=== PATIENT | female | born 1945 | race Caucasian/White ===

== ENCOUNTER → 2024-08-07 | Outpatient (CLI) | payer OTHER, MEDICAID, SELFPAY ==
[2024-08-07 15:36] LABS: COVID-19 Antigen (In-House) Negative (Negative)
[2024-08-07 15:40] LABS: Basophils # (Auto) 0.1 Thou/mm3 (0.0-0.2); Basophils % (Auto) 1 % (0-2.5); Eosinophils # (Auto) 0.3 Thou/mm3 (0.0-0.5); Eosinophils % (Auto) 4 % (0-10); Hematocrit 28.2 % (36.0-46.0); Hemoglobin 9.1 g/dL (12.0-16.0); Immature Granulocytes % (Auto) 0 % (0-0); Immature Granulocytes Auto 0.03 Thou/mm3 (0.00-0.00); Lymphocytes # (Auto) 1.4 Thou/mm3 (1.0-4.8); Lymphocytes % (Auto) 18 % (10-50); Mean Corpuscular HGB Conc 32.3 g/dl (31.0-37.0); Mean Corpuscular Hemoglobin 33.6 pg (25.0-35.0); Mean Corpuscular Volume 104 fL (80-100); Monocytes # (Auto) 0.7 Thou/mm3 (0.0-0.8); Monocytes % (Auto) 9 % (0-12); Neutrophils # (Auto) 5.1 Thou/mm3 (1.8-7.7); Neutrophils % (Auto) 67 % (37-80); Nucleated Red Blood Cell % 0 /100 WBC (0); Platelet Count 299 Thou/mm3 (140-440); RDW Standard Deviation 53.2 fL (36.4-46.3); Red Blood Count 2.71 Miln/mm3 (4.00-5.20); White Blood Count 7.6 Thou/mm3 (3.6-11.0)
[2024-08-07 15:54] LABS: Influenza A Ag Negative; Influenza B Ag Negative; Respiratory Syncytial Virus Ag Negative (Negative)
[2024-08-07 15:56] LABS: Alanine Aminotransferase 15 U/L (10-49); Albumin, Serum 4.4 gm/dL (3.4-4.8); Albumin/Globulin Ratio 2.3 (1.2-2.2); Alkaline Phosphatase 83 U/L (46-116); Anion Gap 11 (7-16); Aspartate Amino Transferase 18 U/L (0-34); BUN/Creatinine Ratio 34 Ratio (12-20); Bilirubin,Total 0.4 mg/dL (0.3-1.2); Blood Urea Nitrogen 27 mg/dL (9-23); Calcium 8.9 mg/dL (8.3-10.6); Calcium (Corrected) 8.9 mg/dL (8.5-10.1); Carbon Dioxide 23.3 mMol/L (20.0-31.0); Chloride 108 mMol/L (98-107); Creatinine (Component) 0.8 mg/dL (0.6-1.3); Globulin 1.9 gm/dL (2.3-3.5); Glucose 86 mg/dL (74-106); Osmolality,Calculated 287 (275-295); Potassium 4.2 mMol/L (3.4-5.1); Sodium 142 mMol/L (136-145); Total Protein 6.3 gm/dL (5.7-8.2); eGFR > 60 See Note
[2024-08-08 14:25] LABS: Cocci Serology, IgM Negative (Negative)
[2024-08-09 12:57] LABS: Cocci Serology, IgG Negative (Negative)
== END | disposition home or self-care (01) ==
PROVIDERS: PCP Internal Medicine; Referring Provider Internal Medicine; Visit Provider Internal Medicine
DX: I20.9 Angina pectoris, unspecified (principal); J11.89 Influenza due to unidentified influenza virus with other manifestations; Z11.52 Encounter for screening for COVID-19
CPT/HCPCS: 36415; 80053; 85025; 86331; 86635; 87040; 87502; 87634; 87811

== ENCOUNTER → 2024-09-29 | Outpatient (CLI) | payer OTHER, MEDICAID, SELFPAY ==
[2024-09-29 08:10] LABS: Collection Type, Urine Clean Catch
[2024-09-29 08:45] LABS: Basophils # (Auto) 0.1 Thou/mm3 (0.0-0.2); Basophils % (Auto) 2 % (0-2.5); Eosinophils # (Auto) 0.3 Thou/mm3 (0.0-0.5); Eosinophils % (Auto) 5 % (0-10); Hematocrit 33.7 % (36.0-46.0); Hemoglobin 10.8 g/dL (12.0-16.0); Immature Granulocytes % (Auto) 0 % (0-0); Immature Granulocytes Auto 0.01 Thou/mm3 (0.00-0.00); Lymphocytes # (Auto) 1.4 Thou/mm3 (1.0-4.8); Lymphocytes % (Auto) 23 % (10-50); Mean Corpuscular Hemoglobin 32.6 pg (25.0-35.0); Mean Corpuscular Volume 102 fL (80-100); Monocytes # (Auto) 0.5 Thou/mm3 (0.0-0.8); Monocytes % (Auto) 9 % (0-12); Neutrophils # (Auto) 3.8 Thou/mm3 (1.8-7.7); Neutrophils % (Auto) 62 % (37-80); Nucleated Red Blood Cell % 0 /100 WBC (0); Platelet Count 263 Thou/mm3 (140-440); RDW Standard Deviation 51.1 fL (36.4-46.3); Red Blood Count 3.31 Miln/mm3 (4.00-5.20); White Blood Count 6.1 Thou/mm3 (3.6-11.0)
[2024-09-29 08:53] LABS: Glucose Estimated Average 97 mg/dL (80-131)
[2024-09-29 09:04] LABS: Alanine Aminotransferase 17 U/L (10-49); Albumin, Serum 5.1 gm/dL (3.4-4.8); Albumin/Globulin Ratio 2.3 (1.2-2.2); Alkaline Phosphatase 74 U/L (46-116); Anion Gap 11 (7-16); Aspartate Amino Transferase 24 U/L (0-34); BUN/Creatinine Ratio 30 Ratio (12-20); Bilirubin,Total 0.6 mg/dL (0.3-1.2); Blood Urea Nitrogen 30 mg/dL (9-23); Calcium 9.5 mg/dL (8.3-10.6); Calcium (Corrected) 9.5 mg/dL (8.5-10.1); Carbon Dioxide 24.9 mMol/L (20.0-31.0); Cardiac Risk Estimate 2.2 RATIO (3.7-5.6); Chloride 106 mMol/L (98-107); Cholesterol 148 mg/dL (132-200); Globulin 2.2 gm/dL (2.3-3.5); Glucose 90 mg/dL (74-106); HDL Cholesterol 67 mg/dL (40-60); LDL Cholesterol,Calculated 60 mg/dL (0-130); Osmolality,Calculated 289 (275-295); Potassium 3.8 mMol/L (3.4-5.1); Sodium 142 mMol/L (136-145); Thyroid Stimulating Hormone 1.61 uIU/mL (0.55-4.78); Total Protein 7.3 gm/dL (5.7-8.2); Triglycerides 107 mg/dL (30-150); eGFR 57 See Note
[2024-09-29 09:05] LABS: Vitamin B12 509 pg/mL (211-911); Vitamin D 25 Hydroxy Total 17.5 ng/mL (7.3-40.2)
[2024-09-29 09:19] LABS: Bilirubin,Urine Negative (Negative); Blood,Urine Negative (Negative); Clarity,Urine Clear (Clear/Hazy); Color,Urine Lt-Yellow (Lt Yel-Yel); Glucose, Urine Negative (Negative); Ketones,Urine Negative (Negative); Leukocyte Esterase,Urine Negative (Negative); Nitrite,Urine Negative (Negative); PH,Urine 6.5 (5.0-7.0); Protein,Urine Negative (Neg - Trace); RBC,Urine 3 /hpf (0-3); Specific Gravity,Urine 1.016 (1.001-1.035); Squamous Epithelial Cell,Urine 1 /hpf (0-5); Urobilinogen,Urine Negative mg/dL (0.0-1.0); WBC,Urine 1 /hpf (0-5)
== END | disposition home or self-care (01) ==
PROVIDERS: PCP Internal Medicine; Referring Provider Internal Medicine; Visit Provider Internal Medicine
DX: Z00.00 Encounter for general adult medical examination without abnormal findings (principal); I10 Essential (primary) hypertension; E78.5 Hyperlipidemia, unspecified
CPT/HCPCS: 36415; 80053; 80061; 81001; 82306; 82607; 83036; 84443; 84550; 85025

== ENCOUNTER → 2024-12-12 | Outpatient (CLI) | payer OTHER, MEDICAID, SELFPAY ==
[2024-12-12 09:49] LABS: Misc Send Out* See Sep Rpt
[2024-12-12 11:14] LABS: Albumin, Serum 4.3 gm/dL (3.4-4.8); Anion Gap 8 (7-16); BUN/Creatinine Ratio 52 Ratio (12-20); Blood Urea Nitrogen 52 mg/dL (9-23); Calcium 9.3 mg/dL (8.3-10.6); Calcium (Corrected) 9.3 mg/dL (8.5-10.1); Carbon Dioxide 26.7 mMol/L (20.0-31.0); Chloride 106 mMol/L (98-107); Glucose 91 mg/dL (74-106); Osmolality,Calculated 295 (275-295); Phosphorous 3.9 mg/dL (2.4-5.1); Potassium 4.6 mMol/L (3.4-5.1); Sodium 141 mMol/L (136-145); eGFR 57 See Note
[2024-12-18 06:40] LABS: Renin Activity, Plasma* 1.73 ng/mL/h (0.25-5.82)
[2024-12-18 06:43] LABS: Aldosterone* 2 ng/dL
== END | disposition home or self-care (01) ==
LOC: COPL 09:18
PROVIDERS: PCP Internal Medicine; Referring Provider Internal Medicine; Visit Provider Internal Medicine
DX: I10 Essential (primary) hypertension (principal); E78.5 Hyperlipidemia, unspecified
CPT/HCPCS: 36415; 80069; 82088; 84244

== ENCOUNTER → 2024-12-22 | Outpatient (CLI) | payer OTHER, SELFPAY ==
--- NOTE | 2024-12-22 | XR_ITS ---
Examination: Renal sonogram Renal Doppler sonographic analysis renal arteries Exam date and time: December 22, 2024 1121 hours INDICATIONS: Diagnosis hypertension several years TECHNIQUE AND FINDINGS: Grayscale sonographic images kidneys with assessment peak arterial systolic velocities resistive indices and renal aortic ratios Right kidney 8.2 cm mild elevation mid right renal artery peak systolic velocity mid right renal artery Mildly elevated resistive indices Normal renal aortic ratio Left kidney 7.6 cm no elevation of systolic velocities Mildly elevated resistive indices, unable to obtain to been prior ratio IMPRESSION: No findings diagnostic for renal artery stenosis
--- NOTE | 2024-12-22 11:00 | XR_ITS ---
Examination: Retroperitoneal ultrasound, complete Technique: Multiple high resolution grayscale images of the retroperitoneum obtained, including kidneys and bladder. Exam date and time:December 22, 2024 1107 hours INDICATIONS: Flank pain months FINDINGS: Right kidney 7.3 cm cortex 1.3 cm Left kidney 7.0 cm renal cortex 1.4 cm Moderate bilateral renal parenchymal scar formation No hydronephrosis No bladder mass or bladder calculi Bladder prevoid volume 134 cc IMPRESSION: Small kidneys with renal cortical thinning Moderate bilateral renal parenchyma scar formation
== END | disposition home or self-care (01) ==
LOC: CDIM 10:21
PROVIDERS: PCP Internal Medicine; Referring Provider Internal Medicine; Visit Provider Internal Medicine
DX: N28.89 Other specified disorders of kidney and ureter (principal); I10 Essential (primary) hypertension
CPT/HCPCS: 76770; 93975

== ENCOUNTER → 2025-03-30 | Outpatient (CLI) | payer OTHER, SELFPAY ==
[2025-03-30 10:23] LABS: Anion Gap 13 (7-16); BUN/Creatinine Ratio 36 Ratio (12-20); Blood Urea Nitrogen 68 mg/dL (9-23); Calcium 9.2 mg/dL (8.3-10.6); Carbon Dioxide 23.7 mMol/L (20.0-31.0); Chloride 105 mMol/L (98-107); Creatinine (Component) 1.9 mg/dL (0.6-1.3); Glucose 98 mg/dL (74-106); Magnesium 2.6 mg/dL (1.6-2.6); Osmolality,Calculated 302 (275-295); Potassium 4.3 mMol/L (3.4-5.1); Sodium 142 mMol/L (136-145); eGFR 26 See Note
== END | disposition home or self-care (01) ==
LOC: COPL 09:13
PROVIDERS: PCP Internal Medicine; Referring Provider Internal Medicine Cardiovascular Disease; Visit Provider Internal Medicine Cardiovascular Disease
DX: I25.118 Atherosclerotic heart disease of native coronary artery with other forms of angina pectoris (principal); I35.1 Nonrheumatic aortic (valve) insufficiency
CPT/HCPCS: 36415; 80048; 83735

== ENCOUNTER 2025-04-12 15:26 | Inpatient (IN) | payer OTHER, MEDICAID, MEDICARE, SELFPAY ==
[2025-04-12 15:28] VITALS: BMI 30.2
--- NOTE | 2025-04-12 15:34 | EKG_ITS ---
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
[2025-04-12 15:37] VITALS: BP 147/76; PULSE 82; RESP 18; TEMP 36.9; O2SAT 97
--- NOTE | 2025-04-12 15:43 | EDRME_ITS ---
Rapid Medical Screening Exam [facility] Arrival date/time: 04/12/25 15:26 CC: Epigastric pain which radiates up into the chest and straight to the back. Onset 2 weeks ago. Also includes nausea vomiting and intermittent diarrhea. Chief Complaint: Abdominal Pain Time Seen by Provider: 04/12/25 15:40 Vital signs: Vital Signs Temperature 98.4 F 04/12/25 15:37 Pulse Rate 82 04/12/25 15:37 Respiratory Rate 18 04/12/25 15:37 Blood Pressure 147/76 H 04/12/25 15:37 Pulse Oximetry (%) 97 04/12/25 15:37 Oxygen Delivery Method Room Air 04/12/25 15:37
[2025-04-12] MEDS: MG HYD/AL HYD/SIME (Maalox Reg) SUSP 30 ML UDC PO (15:59)
[2025-04-12 16:21] LABS: Basophils # (Auto) 0.1 Thou/mm3 (0.0-0.2); Basophils % (Auto) 1 % (0-2.5); Eosinophils # (Auto) 0.5 Thou/mm3 (0.0-0.5); Eosinophils % (Auto) 7 % (0-10); Hematocrit 27.2 % (36.0-46.0); Immature Granulocytes Auto 0.02 Thou/mm3 (0.00-0.00); Lymphocytes # (Auto) 1.2 Thou/mm3 (1.0-4.8); Lymphocytes % (Auto) 17 % (10-50); Mean Corpuscular HGB Conc 32.4 g/dl (31.0-37.0); Mean Corpuscular Hemoglobin 31.4 pg (25.0-35.0); Mean Corpuscular Volume 97 fL (80-100); Monocytes # (Auto) 1.1 Thou/mm3 (0.0-0.8); Monocytes % (Auto) 16 % (0-12); Neutrophils # (Auto) 3.9 Thou/mm3 (1.8-7.7); Neutrophils % (Auto) 58 % (37-80); Nucleated Red Blood Cell # 0.00 Thou/mm3 (0.00-0.00); Nucleated Red Blood Cell % 0 /100 WBC (0); Platelet Count 260 Thou/mm3 (140-440); RDW Standard Deviation 49.0 fL (36.4-46.3); Red Blood Count 2.80 Miln/mm3 (4.00-5.20); White Blood Count 6.8 Thou/mm3 (3.6-11.0)
[2025-04-12 16:27] LABS: Hemoglobin 8.8 g/dL (12.0-16.0)
[2025-04-12 16:35] LABS: INR 1.0 (0.9-1.3); Partial Thromboplastin Time 23.0 Seconds (22.0-36.0); Prothrombin Time 11.0 Seconds (9.0-12.2)
[2025-04-12 16:43] LABS: B-Type Natriuretic Peptide 125 pg/mL (0-100)
[2025-04-12 16:46] LABS: Alanine Aminotransferase 11 U/L (10-49); Albumin, Serum 4.8 gm/dL (3.4-4.8); Albumin/Globulin Ratio 1.8 (1.2-2.2); Alkaline Phosphatase 76 U/L (46-116); Anion Gap 13 (7-16); Aspartate Amino Transferase 27 U/L (0-34); BUN/Creatinine Ratio 28 Ratio (12-20); Bilirubin,Total 0.3 mg/dL (0.3-1.2); Blood Urea Nitrogen 71 mg/dL (9-23); Calcium 8.8 mg/dL (8.3-10.6); Calcium (Corrected) 8.8 mg/dL (8.5-10.1); Carbon Dioxide 19.9 mMol/L (20.0-31.0); Chloride 102 mMol/L (98-107); Creatinine (Component) 2.5 mg/dL (0.6-1.3); Estimated Creatinine Clearance 16.4 mL/min (>60); Globulin 2.6 gm/dL (2.3-3.5); Glucose 107 mg/dL (74-106); Lipase 56 U/L (12-53); Magnesium 2.5 mg/dL (1.6-2.6); Osmolality,Calculated 290 (275-295); Potassium 4.3 mMol/L (3.4-5.1); Sodium 135 mMol/L (136-145); Total Protein 7.4 gm/dL (5.7-8.2); Troponin I < 0.020 ng/mL (0.0-0.045); eGFR 19 See Note
--- NOTE | 2025-04-12 16:55 | EDNOTE_ITS ---
ED Abdominal Pain RME/HPI General Chief Complaint: Abdominal Pain Stated complaint: ABD/BACK PAIN X2WK Time seen by provider: 04/12/25 15:40 Arrival date/time: 04/12/25 15:26 RME / HPI RME / HPI narrative: 80-year-old female patient with significant history of hypertension came in for evaluation regarding epigastric pain which radiates up into the chest and straight to the back. Onset 2 weeks ago. Also includes nausea vomiting and i ntermittent diarrhea. For the last 2 days patient told me that her stool looks green. Patient denies any vomiting blood. Denies any other complaints. Patient is taking Plavix. Related Data Home Medications ?Medication ?Instructions ?Recorded ?Confirmed hydralazine 10 mg tablet 50 mg PO BID 06/15/22 amlodipine 5 mg tablet 5 mg PO QDAY 07/21/24 atorvastatin 20 mg tablet 20 mg PO HS 07/21/24 4 clopidogrel 75 mg tablet (Plavix) 75 mg PO QDAY 07/21/24 furosemide 20 mg tablet 20 mg PO QDAY 07/21/2407/21 metoprolol succinate 50 mg 50 mg PO QDAY 07/21/2407/07 tablet,extended release 24 hr Previous Rx's ?Medication ?Instructions ?Recorded losartan 100 mg tablet 100 mg PO QDAY #30 tabs 10/08 03/29 Allergies Allergy/AdvReac Type Severity Reaction Status Date / Time No Known Allergies Allergy Verified 04/12/25 15:33 Review of Systems Review of Systems Narrative Review of Systems: Review of system reviewed and within normal limits except mentioned in HPI ED Exam Narrative Physical exam: VITAL SIGNS: Reviewed. GENERAL APPEARANCE: Alert and interactive, follows commands, no acute distress, HEAD AND FACE: Non-traumatic. ENT: PERRL, pink conjunctivitis, eyelid no trauma, Mucous membrane moist. NECK: Supple, nontender, no nuchal rigidity. CHEST: No tenderness, no crepitus, no paradoxical movement, no retractions. LUNGS: Clear, well ventilated, symmetric, no rales, no wheezing, no ronchi, no stridor, good breath sounds bilaterally. HEART: Regular rate, regular rhythm, no murmur, no gallops. ABDOMEN: Soft, positive bowel sounds, nondistended, no guarding, nontender, no rebound, no masses, RECTAL: Rectal exam was done by me, and green-colored stool noted, strong positive for occult blood. GENITAL: Deferred. NEUROLOGICAL: Gross motor function intact sensory function intact, Appropriate for age. MUSCULOSKELETAL: low back nontender, full range of motion. EXTREMITIES: Nontender, full range of motion. SKIN: Color pink, dry, no rash, no lacerations, no abrasions, no contusions. LYMPHATICS: Deferred. Course Quality Measures none Orders Category Date Time Status COVID-19 Screening Questionnaire NOW Care 04/12/25 18:44 Active Decision to Admit X1 Care 04/12/25 18:44 Active EKG (ED ONLY) *Do not use* NOW Care 04/12/25 15:34 Completed Consult to Gastroenterology Stat Cons 04/12/25 18:[address] abdomen pelvis wo con Stat Exams 04/12/25 17:06 Completed EKG (ED Only) Stat Exams 04/12/25 15:34 Draft B-Type Natriuretic Peptide Stat Lab 04/12/25 15:09 Completed CBC Stat Lab 04/12/25 15:09 Completed Comprehensive Metabolic Panel Stat Lab 04/12/25 15:09 Completed Drug Screen,Urine Stat Lab 04/12/25 16:46 Completed Lipase Stat Lab 04/12/25 15:09 Completed Magnesium Stat Lab 04/12/25 15:09 Completed Partial Thromboplastin Time Stat Lab 04/12/25 15:09 Completed Prothrombin Time with INR Stat Lab 04/12/25 15:09 Completed Troponin I Stat Lab 04/12/25 15:09 Completed Urinalysis Stat Lab 04/12/25 16:46 Completed Pantoprazole Inj [Protonix Inj] Med 04/12/25 17:06 Discontinued 80 mg IVP X1 ONE Ringers Lactated 1000 ml [Lactated Ringers] 1,000 ml Med 04/12/25 17:06 Discontinued IV 999 mls/hr mg Hyd/Al Hyd/Kathryn Susp [Maalox Susp] Med 04/12/25 15:43 Discontinued 30 ml PO X1 ONE Vital Signs Vital signs: Vital Signs Temperature 98.4 F 04/12/25 15:37 Pulse Rate 82 04/12/25 15:37 Respiratory Rate 18 04/12/25 15:37 Blood Pressure 147/76 H 04/12/25 15:37 Pulse Oximetry (%) 97 08/07/25 15:37 Oxygen Delivery Method Room Air 04/12/25 15:37 Abdominal Pain MDM [facility] Narrative [facility] Narrative:: 80-year-old 80 yo female pt with significant history of hypertension came in for evaluation regarding epigastric pain which radiates up into the chest and straight to the back. Onset 2 weeks ago. Also includes nausea vomiting and intermittent diarrhea. For the last 2 days patient told me that her stool looks green. Patient denies any vomiting blood. Denies any other complaints. Patient is taking Plavix. EKG shows sinus rhythm, ventricular rate of 80 bpm, no ST segment elevation or depression noted. Patient's hemoglobin today was noted to be 8.8, hematocrit of 27.2, platelets is normal. Last September patient's hemoglobin was noted to be 10.8. Patient also was noted to have a creatinine of 2.[address] scan of the abdomen and pelvis came back with no acute pathology Case discussed with patient's PCP Dr. Nugent, who admitted the patient, negative Dr. Nugent I consulted Dr. Blum also GI specialist on-call, discussed the case and will see the patient. Thank you Dr. Blum Patient data External records reviewed:: None Clinical information provided by:: patient Social determinants that could affect healthcare access:: none Patient has the following chronic illnesses:: Hypertension How is presenting disease/condition affected by chronic disease/condition?: exacerbated by Evaluation data The following diagnostics were reviewed and interpreted by me:: lab results, radiology exam(s) and EKG tracing(s) Lab and/or radiology exams considered but not ordered:: None Interpretation Summary: See results [facility] Medications / Prescriptions Medications or Prescriptions considered but not ordered:: None Medication administrations:: Medication Administration History Discontinued Medications Al Hydrox/Mg Hydrox/Simethicone (Mg Hyd/Al Hyd/Kathryn (Maalox Reg) Susp 30 Ml Udc) 30 ml PO X1 ONE Stop: 04/12/25 15:44 Last Admin: 04/12/25 15:59 Dose: 30 ml Documented By: CELSA Lactated Ringer's (Lactated Ringers) 1,000 mls @ 999 mls/hr IV .Q1H1M ONE Stop: 04/12/25 18:06 Last Admin: 04/12/25 18:10 Dose: 999 mls/hr Documented By: RAKEL Pantoprazole Sodium (Pantoprazole Inj 40 Mg Vial) 80 mg IVP X1 ONE Stop: 04/12/25 17:07 Last Admin: 04/12/25 18:09 Dose: 80 mg Documented By: TM Maalox, IV fluids, Protonix IV Consultations Consultation(s) initiated? (list below): Yes Consultation #1 (Physician, Specialty, Details): Dr. Blum, GI specialist on-call Diagnosis Differential diagnosis abdominal pain: abdominal pain, constipation and diverticulitis Most likely diagnosis given after review of the tests above:: Upper GI bleed, abdominal pain, ENRIKE Admission Indicated Admission indicated?: indicated Admission Request Was there a request for admission?: Yes Admission Attestation Admission request attestation: Dr Nugent agrees to accept the patient for admission. Disposition Plan Disposition Plan: Admit Discharge Plan Plan Patient Disposition: Admit Acute Care w/in Hospital Discharge Disposition comment: stable Prescriptions/Referrals Prescriptions/Med Rec: No Action metoprolol succinate 50 mg Tablet Extended Release 24 Hr 50 mg PO QDAY clopidogrel [Plavix] 75 mg Tablet 75 mg PO QDAY amlodipine 5 mg Tablet 5 mg PO QDAY furosemide 20 mg Tablet 20 mg PO QDAY atorvastatin 20 mg tablet 20 mg PO HS hydralazine 10 mg Tablet 50 mg PO BID losartan 100 mg Tablet 100 mg PO QDAY Qty: 30 0RF Referrals: Berenice Nugent MD [Primary Care Provider] - In 1 week Problem List Clinical Impression: UGIB (upper gastrointestinal bleed), ENRIKE (acute kidney injury) Patient/Caregiver Discharge Instructions Print Language: Kiswahili Stand Alone Forms: Kim Award Info., Patient Portal Info Letter
[2025-04-12 17:06] VITALS: BP 178/73; PULSE 87; RESP 14; TEMP 36.6; O2SAT 99
--- NOTE | 2025-04-12 17:06 | XR_ITS ---
Examination: CT abdomen and pelvis without contrast. Coronal 3-D reconstructions. Sagittal 2-D reconstructions. Date and time of exam:April 12, 2025 1731 hours Comparison 05/19/2024 INDICATIONS: Lower abdominal pain beginning 2 weeks ago CTDI: vol (mGy): 9.53 DLP: (mGycm): 472 Technique: Axial images of the abdomen have been obtained, 3 mm slice thickness Intravenous contrast material has not been administered. Low dose protocols were performed. One or more of the following dose reduction techniques were used; automated exposure control, adjustment of the mA and/or KV according to patient size, use of iterative reconstruction technique. Findings: Large retrocardiac gastric hernia No focal liver or splenic lesions No gallstones No pancreatic or adrenal mass Moderate renal parenchymal scar formation, no hydronephrosis or ureteral calculi Aortic calcification no aneurysmal dilatation No bowel obstruction Normal appendix No diverticulitis Atrophic anteverted uterus No adnexal mass Urinary bladder is intact mild wall thickening Grade 1 anterolisthesis L4 on L5 Moderate degenerative disc disease L5-S1 and involving the lower dorsal interspaces Moderate narrowing hip joints Severe osteopenia. IMPRESSION: Moderate renal parenchymal scar formation, no hydronephrosis or ureteral calculi Normal appendix No bowel obstruction or diverticulitis Cystitis pattern
[2025-04-12 17:08] LABS: Collection Type, Urine Clean Catch
[2025-04-12 17:11] LABS: Bilirubin,Urine Negative (Negative); Blood,Urine Negative (Negative); Clarity,Urine Clear (Clear/Hazy); Color,Urine Lt-Yellow (Lt Yel-Yel); Glucose, Urine Negative (Negative); Hyaline Casts,Urine 1 /hpf (0-1); Ketones,Urine Negative (Negative); Leukocyte Esterase,Urine Negative (Negative); Nitrite,Urine Negative (Negative); PH,Urine 5.5 (5.0-7.0); Protein,Urine Negative (Neg - Trace); RBC,Urine 1 /hpf (0-3); Specific Gravity,Urine 1.014 (1.001-1.035); Squamous Epithelial Cell,Urine 1 /hpf (0-5); Urobilinogen,Urine Negative mg/dL (0.0-1.0); WBC,Urine < 1 /hpf (0-5)
[2025-04-12 17:19] LABS: Amphetamine/Methamp Scrn,U Negative (Negative); Barbiturate Screen,Urine Negative (Negative); Benzodiazepines Screen,Urine Negative (Negative); Benzoylecgonine Screen, Ur Negative (Negative); Fentanyl Screen,Urine Positive (Negative); Opiate Screen,Urine Negative (Negative); THC Screen,Urine Negative (Negative)
--- NOTE | 2025-04-12 18:00 | PC.NURSE ---
PT GCS 15, DENIES ANY CURRENT PAIN OR DISCOMFORT STATES THAT THE MEDICATION HELPED HER A LOT. VSS ON TELE, WILL CONT W/POC
[2025-04-12] MEDS: RINGERS LACTATED 1000 ML 1,000 ML 999 ML IV (18:10)
[2025-04-12 20:30] VITALS: BP 143/56; PULSE 86; RESP 16; TEMP 36.8; O2SAT 99
--- NOTE | 2025-04-12 21:07 | PD.RESHP ---
Documentation for date of: 04/13/25 [facility] History of Present Illness History of present illness: Erna Hernandez is an 80-year-old F with a PMH of peptic ulcers, HTN, HLD, and CAD s/p stenting who presented to the ED on 04/12/25 with epigastric pain radiating up the chest and straight to the back. At that time she also endorsed associated nausea, vomiting, and intermittent diarrhea (productive of green stool in the last 2 days). During this assembly instructions writer's interview occurring on 04/13/25, facilitated by computer engineering technologist, patient's chief complaint was stomach ache, and pain in the back, shoulders, and arms . She states that the pain started 2 weeks ago and that she had received medicine from a doctor around that time which did not help. However, today, she denies any of the pain that she had initially presented with in the ED. In the ED, vitals showed: BP 147/76 HR 82 RR 18 Temp 98.4 SpO2 97% on room air ED Course: CBC showed low hemoglobin 8.8 (MCV 97, high RDW 49.0) but was otherwise within normal limits. Coagulation panel was within normal limits. CMP showed slightly low sodium 135, high BUN 71, high creatinine 2.5, low EGFR 19, and very slightly elevated BNP 125 and lipase 56. UA was unremarkable. UDS was positive for fentanyl but negative otherwise. Imaging: EKG showed normal sinus rhythm with normal QTc 445. CTAP showed moderate renal parenchymal scar formation without hydronephrosis or ureteral calculi, cystitis pattern, normal appendix, and no bowel obstruction or diverticulitis. Other notable findings include a large retrocardiac gastric hernia, aortic calcification without aneurysmal dilatation, grade 1 anterolisthesis L4 on L5, moderate degenerative disc disease L5-S1 and involving the lower third dorsal interspaces, and severe osteopenia. In the ED, patient was given Maalox, IV Protonix, and 1 L lactated Ringer's bolus. Patient was admitted for the work-up and management of GI bleed and ENRIKE. Gastroenterology (Dr. Blum) was consulted and is closely following the case. Review of Systems Review of Systems Narrative Review of Systems: General: Denies fevers or chills HEENT: Denies congestion or sore throat Heart: Endorses chest pain. Endorses fatigue with exertion. Denies palpitations Lungs: Denies shortness of breath or cough Abdomen: Endorses nausea. Endorses suprapubic abdominal pain. Denies vomiting, constipation, diarrhea, or blood in stool Genitourinary: Denies frequency, urgency, dysuria, or hematuria Neurology: Denies any changes in vision, weakness or difficulty speaking Review of systems otherwise negative except what is mentioned above. Past Medical History Past Medical History Comments PMH COMMENT: PMH: peptic ulcers, HTN, HLD, and CAD s/p stenting PSH: 4 C-sections, 3 procedures having to do with the heart (one was a diagnostic right and left heart cardiac catheterization performed 07/21/[address] Goldstein) Medications: Amlodipine 5 mg daily, aspirin 81 mg daily, atorvastatin 20 mg at bedtime, Plavix 75 mg daily, furosemide 40 mg daily, losartan 100 mg daily, metoprolol succinate 50 mg daily Allergies: None FH: Dad was an alcoholic, mother had hypertension SH: Lives in a house in [place] with son, no significant drinking, smoking, recreational drug use history Exam Vital Signs Temp Pulse Resp BP Pulse Ox O2 Del Method 97.1 F 80 17 136/87 H 95 Room Air 04/13/25 08:00 04/13/25 08:00 04/13/25 08:00 04/13/25 08:00 04/13/25 08:00 04/13/25 08:00 Narrative Exam Physical Exam: General: A/O x3, no acute distress, well-nourished, well-developed. Skin: Warm, dry, intact, no obvious rash. Head: Normocephalic, atraumatic. Eyes: PERRL, EOMI. Anicteric, vision grossly intact. Ears: No ear pain, no ear discharge, Hearing grossly intact. Nose: No nasal discharge. Mouth/Throat: Oral mucosa moist. No obvious lesions in oropharynx. Neck: Neck supple, non-tender, no cervical lymphadenopathy. Cardiovascular: Systolic murmur noted. Regular rate and rhythm, no JVD or carotid bruits. +S1/S2. Respiratory: Bilateral lungs are clear to auscultation and percussion, respirations unlabored, no crackles, no wheezing. No accessory muscle use. Gastrointestinal: Tenderness to palpation of abdominal midline and lower quadrants. Palpable mass in the lower left quadrant. Soft, non-distended. No guarding or rebound tenderness. Peristalsis present. Extremities: Symmetrical, no significant deformities. No edema, no cyanosis, no clubbing. 2+ radial pulse bilaterally, 2+ posterior tibial pulse bilaterally. Neuro: No focal deficits observed. Conversant, moving all extremities. No overt cerebellar signs/incoordination. Psychiatric: Cooperative, appropriate affect. Results: Labs 04/14/25 04:25 04/14/25 04:25 Labs: Short CBC 04/12/25 04/13/25 Range/Units 15:09 05:13 WBC 6.8 5.1 (3.6-11.0) Thou/mm3 Hgb 8.8 L 8.2 L (12.0-16.0) g/dL Hct 27.2 L 24.9 L (36.0-46.0) % Plt Count 260 227 D (140-440) Thou/mm3 BMP 04/12/25 04/13/25 15:09 05:13 Sodium 135 L 148 H D Potassium 4.3 3.5 D Chloride 102 115 H Carbon Dioxide 19.9 L 20.3 BUN 71 H 50 H Creatinine 2.5 H 1.5 H D Glucose 107 H 89 Calcium 8.8 9.0 Cardiac Enzymes 04/12/25 Range/Units 15:09 Troponin I < 0.020 (0.0-0.045) ng/mL Liver Function 04/12/25 04/13/25 Range/Units 15:09 05:13 Total Bilirubin 0.3 0.4 (0.3-1.2) mg/dL AST 27 20 (0-34) U/L ALT 11 8 L (10-49) U/L Alkaline Phosphatase 76 62 (46-116) U/L Albumin 4.8 4.1 D (3.4-4.8) gm/dL Urine 04/12/25 Range/Units 16:46 Urine Color Lt-Yellow (Lt Yel-Yel) Urine Clarity Clear (Clear/Hazy) Urine pH 5.5 (5.0-7.0) Ur Specific [place] 1.014 (1.001-1.035) Urine Protein Negative (Neg - Trace) Urine Glucose (UA) Negative (Negative) Quality Measures Quality Measures none Advance care planning discussed with:: patient Medications Home Medications and Allergies Home Medications ?Medication ?Instructions ?Recorded ?Confirmed ?Type hydralazine 10 mg tablet 50 mg PO BID 06/15/22 04/12/25 History amlodipine 5 mg tablet 5 mg PO QDAY 07/21/24 04/12/25 History atorvastatin 20 mg tablet 20 mg PO HS 07/21/24 04/12/25 History clopidogrel 75 mg tablet (Plavix) 75 mg PO QDAY 07/21/24 04/12/25 History Held on 04/14/25. Instructions: Resume on 04/21/25. hold for dark stools furosemide 20 mg tablet 40 mg PO QDAY 07/21/24 04/12/25 History metoprolol succinate 50 mg 50 mg PO QDAY 07/21/24 04/12/25 History tablet,extended release 24 hr aspirin 81 mg tablet,delayed 81 mg PO QDAY 04/12/25 04/12/25 History release Allergies Allergy/AdvReac Type Severity Reaction Status Date / Time No Known Allergies Allergy Verified 04/12/25 15:33 Visit Medications Sodium Chloride (Ns) 1,000 mls @ 125 mls/hr IV .Q8H CHRISTOPHER Stop: 05/12/25 20:31 Last Admin: 04/13/25 05:14 Dose: 125 mls/hr Pantoprazole Sodium (Pantoprazole Inj 40 Mg Vial) 40 mg IV QDAY CHRISTOPHER Stop: 05/12/25 20:29 Last Admin: 04/13/25 09:52 Dose: 40 mg Discontinued Medications Al Hydrox/Mg Hydrox/Simethicone (Mg Hyd/Al Hyd/Kathryn (Maalox Reg) Susp 30 Ml Udc) 30 ml PO X1 ONE Stop: 04/12/25 15:44 Last Admin: 04/12/25 15:59 Dose: 30 ml Lactated Ringer's (Lactated Ringers) 1,000 mls @ 999 mls/hr IV .Q1H1M ONE Stop: 04/12/25 18:06 Last Infusion: 04/12/25 19:30 Dose: Infused Pantoprazole Sodium (Pantoprazole Inj 40 Mg Vial) 80 mg IVP X1 ONE Stop: 04/12/25 17:07 Last Admin: 04/12/25 18:09 Dose: 80 mg Assessment & Plan Plan Erna Hernandez is an 80-year-old F with a PMH of peptic ulcers, HTN, HLD, and CAD s/p stenting who presented to the ED on 04/12/25 with epigastric pain radiating up the chest and straight to the back. Patient was admitted for the work-up and management of GI bleed and ENRIKE. Gastroenterology (Dr. Blum) was consulted and is closely following the case. #ENRIKE vs. ENRIKE on CKD, likely prerenal (BUN/creatinine ratio 28) #likely 2/2 to intravascular fluid depletion (in the setting of suspected active bleeding) Admission creatinine 2.5 (baseline: 0.8-1.2), BUN 71, eGFR 19 04/13/25: creatinine has down-trended to 1.5, BUN to 50, eGFR increased to 35 (improving kidney function after fluid resuscitation) In the contexts of fluids, patient is s/p 3 L, currently receiving another 1 L 1/2NS Diagnostic Inquiry -No current recommendation Treatment Plan -Fluid resuscitation: 1 L 1/2NS @ 125 mL/hr -Monitor renal panel -Avoid nephrotoxic agents (aminoglycosides, NSAIDs, radiographic contrast) -Adjust medication dosing based on patient's impaired renal function -Hold any SANG/ARB/diuretics #Acute blood loss normocytic anemia #History of peptic ulcer Admission Hgb 8.8 (MCV 97, RDW 49.0), previous Hgb in September was 10.8 04/13/25 Patient's hemoglobin has down-trended to 8.2 Rectal examination by GI showed grossly Hemoccult positive stool CTAP was negative for diverticulitis Patient has known history of peptic ulcer and is on home Plavix PT, INR, PTT within normal range on prior day. Diagnostic Inquiry -Patient refused to have EGD performed, origin of blood loss cannot currently be localized Treatment Plan -Patient typed and screened -Monitor H&H, transfusing for Hgb <7 or symptomatic -Avoid NSAIDs/ASA/chemical prophylaxis -IV Pantoprazole 40 mg BID -Holding home Plavix #Electrolyte derangements #Hypernatremia #(approaching) Hypokalemia #Hyperchloremia 04/13/25: Na 148, K 3.5, Cl 115 (yesterday was 135, 4.3, and 102 respectively) Likely due to over-infusion of NS maintenance fluid Diagnostic Inquiry -No current recommendation Treatment Plan -Changed maintenance fluid from NS to 1/2NS -Continue to monitor electrolytes, correcting as appropriate #Hypertension Admission BP 147/76 Last BP @ 12:00, 04/13/25 was 124/64 On home amlodipine, furosemide, losartan, and metoprolol succinate Diagnostic Inquiry -No current recommendation Treatment Plan -Continue to hold antihypertensives in the setting of suspected active GI bleeding #Hyperlipidemia #History of CAD s/p stenting Last lipid panel performed in September 2024 was relatively normal On home atorvastatin Diagnostic Inquiry -No current recommendation Treatment Plan -No current recommendation Hospital Management: Disposition: undergoing work-up and management of GI bleed and ENRIKE Diet: NPO today (pending EGD, however patient refused) GI Prophylaxis: Protonix Bowel Prophylaxis: Senna DVT Prophylaxis: none (bleeding risk) CODE STATUS: Full Code I have examined the patient and conferred with the nephrology attending, Dr. Nugent, regarding them. Evens Larsen, DO PGY-1 Internal Medicine Attending Provider Attestation/Addendum Patient seen and examined with resident physician Dr. Larsen. Note reviewed, agree with findings and recommendations. Patient admitted with Epigastric pain, Black stools. Mild anemia noted. Patient will be seen by Dr. Blum. Absolutely refuses to go for endoscopy. Will monitor closely on PPIs.
[2025-04-12] MEDS: SODIUM CHLORIDE 0.9% 1000 ML 1,000 ML 125 ML IV (21:12)
--- NOTE | 2025-04-12 22:19 | PD.IMCONS ---
HPI Data of Consult Requesting Physician: Berenice Nugent MD Primary Care Provider: Berenice Nugent MD Consult Narrative Reason for consult: Nausea vomiting grossly Hemoccult positive stool pain abdomen H/H 8.8/27.2 History of present illness: 80 years of female presented to the emergency room with severe abdominal pain going to the back along with nausea vomiting and the hemoglobin hematocrit 8.8 and 27.2 with rectal examination showing grossly Hemoccult positive stool CT scan of the abdomen pelvis done without contrast showed large retrocardiac hiatal hernia no gallstones Patient was subsequently admitted cc:: cc: Berenice Nugent MD Review of Systems Review of Systems Systems Reviewed: All systems reviewed, normal except as documented Past Medical History Surgical History OTHER SURGICAL HX: Essential hypertension Hyperlipidemia Meds Home Medications and Allergies Home Medications ?Medication ?Instructions ?Recorded ?Confirmed ?Type hydralazine 10 mg tablet 50 mg PO BID 06/15/22 04/12/25 History amlodipine 5 mg tablet 5 mg PO QDAY 07/21/24 04/12/25 History atorvastatin 20 mg tablet 20 mg PO HS 07/21/24 04/12/25 History clopidogrel 75 mg tablet (Plavix) 75 mg PO QDAY 07/21/24 04/12/25 History furosemide 20 mg tablet 40 mg PO QDAY 07/21/24 04/12/25 History metoprolol succinate 50 mg 50 mg PO QDAY 07/21/24 04/12/25 History tablet,extended release 24 hr aspirin 81 mg tablet,delayed 81 mg PO QDAY 04/12/25 04/12/25 History release Allergies Allergy/AdvReac Type Severity Reaction Status Date / Time No Known Allergies Allergy Verified 04/12/25 15:33 Exam Vital Signs Temp Pulse Resp BP Pulse Ox O2 Del Method 98.3 F 86 16 143/56 H 99 Room Air 04/12/25 20:30 04/12/25 20:30 04/12/25 20:30 04/12/25 20:30 04/12/25 20:30 04/12/25 20:30 Constitutional Comments: Alert oriented Routine Respiratory Exam Comments: Normal to auscultation Routine Abdominal Exam Comments: Midepigastric tenderness Results Labs 04/13/25 13:32 04/13/25 05:13 Labs: Short CBC 04/12/25 Range/Units 15:09 WBC 6.8 (3.6-11.0) Thou/mm3 Hgb 8.8 L (12.0-16.0) g/dL Hct 27.2 L (36.0-46.0) % Plt Count 260 (140-440) Thou/mm3 BMP 04/12/25 15:09 Sodium 135 L Potassium 4.3 Chloride 102 Carbon Dioxide 19.9 L BUN 71 H Creatinine 2.5 H Glucose 107 H Calcium 8.8 Cardiac Enzymes 04/12/25 Range/Units 15:09 Troponin I < 0.020 (0.0-0.045) ng/mL Liver Function 04/12/25 Range/Units 15:09 Total Bilirubin 0.3 (0.3-1.2) mg/dL AST 27 (0-34) U/L ALT 11 (10-49) U/L Alkaline Phosphatase 76 (46-116) U/L Albumin 4.8 (3.4-4.8) gm/dL Urine 04/12/25 Range/Units 16:46 Urine Color Lt-Yellow (Lt Yel-Yel) Urine Clarity Clear (Clear/Hazy) Urine pH 5.5 (5.0-7.0) Ur Specific [place] 1.014 (1.001-1.035) Urine Protein Negative (Neg - Trace) Urine Glucose (UA) Negative (Negative) Assessment and Plan Additional Assessment & Plan Additional Plan: # Pain abdomen epigastric right upper quadrant # Nausea vomiting # Posthemorrhagic anemia acute # FOBT positive plan IV Protonix fiberoptic esophagogastroduodenoscopy with possible biopsy possible therapeutic intervention under intravenous moderate sedation schedule for tomorrow n.p.o. secondary to right serial CBC if the hemoglobin drops below 7 g . PRBC transfusion other medical problems include Hyperlipidemia Essential hypertension thank you very much for the opportunity to participate in the care of this patient
[2025-04-12 22:20] VITALS: BMI 28.6
[2025-04-12 22:23] VITALS: BP 127/81; PULSE 91; RESP 18; TEMP 36.2; O2SAT 98
[2025-04-13] VITALS: BP 159/62; PULSE 81; RESP 18; TEMP 36.1; O2SAT 98
[2025-04-13 04:00] VITALS: BP 152/67; PULSE 85; RESP 18; TEMP 36.2; O2SAT 97
[2025-04-13] MEDS: SODIUM CHLORIDE 0.9% 1000 ML 1,000 ML 125 ML IV ×2 (05:14→13:45)
[2025-04-13 06:12] LABS: Basophils # (Auto) 0.1 Thou/mm3 (0.0-0.2); Basophils % (Auto) 1 % (0-2.5); Eosinophils # (Auto) 0.4 Thou/mm3 (0.0-0.5); Eosinophils % (Auto) 8 % (0-10); Hematocrit 24.9 % (36.0-46.0); Immature Granulocytes Auto 0.01 Thou/mm3 (0.00-0.00); Lymphocytes # (Auto) 0.9 Thou/mm3 (1.0-4.8); Lymphocytes % (Auto) 17 % (10-50); Mean Corpuscular HGB Conc 32.9 g/dl (31.0-37.0); Mean Corpuscular Hemoglobin 31.8 pg (25.0-35.0); Mean Corpuscular Volume 97 fL (80-100); Monocytes # (Auto) 0.8 Thou/mm3 (0.0-0.8); Monocytes % (Auto) 15 % (0-12); Neutrophils # (Auto) 2.9 Thou/mm3 (1.8-7.7); Neutrophils % (Auto) 58 % (37-80); Nucleated Red Blood Cell # 0.00 Thou/mm3 (0.00-0.00); Nucleated Red Blood Cell % 0 /100 WBC (0); Platelet Count 227 Thou/mm3 (140-440); RDW Standard Deviation 47.6 fL (36.4-46.3); Red Blood Count 2.58 Miln/mm3 (4.00-5.20); White Blood Count 5.1 Thou/mm3 (3.6-11.0)
[2025-04-13 06:13] LABS: Hemoglobin 8.2 g/dL (12.0-16.0)
[2025-04-13 06:34] LABS: Alanine Aminotransferase 8 U/L (10-49); Albumin, Serum 4.1 gm/dL (3.4-4.8); Albumin/Globulin Ratio 2.0 (1.2-2.2); Alkaline Phosphatase 62 U/L (46-116); Anion Gap 13 (7-16); Aspartate Amino Transferase 20 U/L (0-34); BUN/Creatinine Ratio 33 Ratio (12-20); Bilirubin,Total 0.4 mg/dL (0.3-1.2); Blood Urea Nitrogen 50 mg/dL (9-23); Calcium 9.0 mg/dL (8.3-10.6); Calcium (Corrected) 9.0 mg/dL (8.5-10.1); Carbon Dioxide 20.3 mMol/L (20.0-31.0); Chloride 115 mMol/L (98-107); Creatinine (Component) 1.5 mg/dL (0.6-1.3); Estimated Creatinine Clearance 26.5 mL/min (>60); Globulin 2.1 gm/dL (2.3-3.5); Glucose 89 mg/dL (74-106); Magnesium 2.7 mg/dL (1.6-2.6); Osmolality,Calculated 306 (275-295); Phosphorous 3.6 mg/dL (2.4-5.1); Potassium 3.5 mMol/L (3.4-5.1); Sodium 148 mMol/L (136-145); Total Protein 6.2 gm/dL (5.7-8.2); eGFR 35 See Note
[2025-04-13 08:00] VITALS: BP 136/87; PULSE 80; RESP 17; TEMP 36.2; O2SAT 95
--- NOTE | 2025-04-13 09:38 | PD.NEPHPROG ---
Documentation for date of: 04/14/25 Subjective Subjective Interval history: Erna Hernandez is an 80-year-old F with a PMH of peptic ulcers, HTN, HLD, and CAD s/p stenting who presented to the ED on 04/12/25 with epigastric pain radiating up the chest and straight to the back. At that time she also endorsed associated nausea, vomiting, and intermittent diarrhea (productive of green stool in the last 2 days). During this senior technical writer's interview occurring on 04/13/25, facilitated by museum service scheduler, patient's chief complaint was stomach ache, and pain in the back, shoulders, and arms . She states that the pain started 2 weeks ago and that she had received medicine from a doctor around that time which did not help. However, today, she denies any of the pain that she had initially presented with in the ED. In the ED, vitals showed: BP 147/76 HR 82 RR 18 Temp 98.4 SpO2 97% on room air ED Course: CBC showed low hemoglobin 8.8 (MCV 97, high RDW 49.0) but was otherwise within normal limits. Coagulation panel was within normal limits. CMP showed slightly low sodium 135, high BUN 71, high creatinine 2.5, low EGFR 19, and very slightly elevated BNP 125 and lipase 56. UA was unremarkable. UDS was positive for fentanyl but negative otherwise. Imaging: EKG showed normal sinus rhythm with normal QTc 445. CTAP showed moderate renal parenchymal scar formation without hydronephrosis or ureteral calculi, cystitis pattern, normal appendix, and no bowel obstruction or diverticulitis. Other notable findings include a large retrocardiac gastric hernia, aortic calcification without aneurysmal dilatation, grade 1 anterolisthesis L4 on L5, moderate degenerative disc disease L5-S1 and involving the lower third dorsal interspaces, and severe osteopenia. In the ED, patient was given Maalox, IV Protonix, and 1 L lactated Ringer's bolus. Patient was admitted for the work-up and management of GI bleed and ENRIKE. Gastroenterology (Dr. Blum) was consulted and is closely following the case. 04/13/2025 Patient currently seen in medical floor. Abdominal pain much better. Will start a clear liquid diet. Hemoglobin slightly lower. Patient declines endoscopy. Dr. Blum hopefully will come and talk to her. Review of Systems Review of Systems Narrative Review of Systems: General: Denies fevers or chills HEENT: Denies congestion or sore throat Heart: Endorses chest pain. Endorses fatigue with exertion. Denies palpitations Lungs: Denies shortness of breath or cough Abdomen: Endorses nausea. Endorses suprapubic abdominal pain. Denies vomiting, constipation, diarrhea, or blood in stool Genitourinary: Denies frequency, urgency, dysuria, or hematuria Neurology: Denies any changes in vision, weakness or difficulty speaking Review of systems otherwise negative except what is mentioned above. Exam Vital Signs Temp Pulse Resp BP Pulse Ox O2 Del Method 37.0 C 90 18 167/80 H 97 Room Air 04/14/25 14:21 04/14/25 14:21 04/14/25 14:21 04/14/25 14:21 04/14/25 14:21 04/14/25 12:00 Narrative Exam Physical Exam: General: A/O x3, no acute distress, well-nourished, well-developed. Skin: Warm, dry, intact, no obvious rash. Head: Normocephalic, atraumatic. Eyes: PERRL, EOMI. Anicteric, vision grossly intact. Ears: No ear pain, no ear discharge, Hearing grossly intact. Nose: No nasal discharge. Mouth/Throat: Oral mucosa moist. No obvious lesions in oropharynx. Neck: Neck supple, non-tender, no cervical lymphadenopathy. Cardiovascular: Systolic murmur noted. Regular rate and rhythm, no JVD or carotid bruits. +S1/S2. Respiratory: Bilateral lungs are clear to auscultation and percussion, respirations unlabored, no crackles, no wheezing. No accessory muscle use. Gastrointestinal: non tender, Soft, non-distended. No guarding or rebound tenderness. Peristalsis present. Extremities: Symmetrical, no significant deformities. No edema, no cyanosis, no clubbing. 2+ radial pulse bilaterally, 2+ posterior tibial pulse bilaterally. Neuro: No focal deficits observed. Conversant, moving all extremities. No overt cerebellar signs/incoordination. Psychiatric: Cooperative, appropriate affect. Objective Labs 04/14/25 04:25 04/14/25 04:25 Labs: Laboratory Results - last 24 hr 04/14/25 04/14/25 04:25 11:29 WBC 5.5 RBC 2.38 L Hgb 7.6 L Hct 23.3 L MCV 98 MCH 31.9 MCHC 32.6 RDW Std Deviation 49.3 H Plt Count 226 Neut % (Auto) 64 Lymph % (Auto) 17 [place] % (Auto) 13 H Eos % (Auto) 5 Baso % (Auto) 2 Neut # (Auto) 3.5 Lymph # (Auto) 0.9 L [place] # (Auto) 0.7 Eos # (Auto) 0.3 Baso # (Auto) 0.1 Immature Gran # (Auto) 0.01 H Absolute Nucleated RBC 0.00 Immature Gran % 0 Nucleated RBC % 0 Sodium 149 H Potassium 3.8 Chloride 117 H Carbon Dioxide 19.0 L Anion Gap 13 BUN 21 Creatinine 0.9 D Estim Creat Clear Calc 44.2 L eGFR > 60 BUN/Creatinine Ratio 23 H Glucose 80 Calculated Osmolality 298 H Calcium 8.4 Corrected Calcium 8.6 Phosphorus 2.3 L Magnesium 2.1 Total Bilirubin 0.4 AST 27 ALT 8 L Alkaline Phosphatase 57 Total Protein 5.7 Albumin 3.7 Globulin 2.0 L Albumin/Globulin Ratio 1.9 Blood Type O Positive Antibody Screen NEGATIVE Crossmatch See Detail Blood Bank Wristband ID Yes Assessment & Plan Additional Assessment & Plan Additional Plan: Erna Hernandez is an 80-year-old F with a PMH of peptic ulcers, HTN, HLD, and CAD s/p stenting who presented to the ED on 04/12/25 with epigastric pain radiating up the chest and straight to the back. Patient was admitted for the work-up and management of GI bleed and ENRIKE. Gastroenterology (Dr. Blum) was consulted and is closely following the case. #ENRIKE vs. ENRIKE on CKD, likely prerenal (BUN/creatinine ratio 28) #likely 2/2 to intravascular fluid depletion (in the setting of suspected active bleeding) Admission creatinine 2.5 (baseline: 0.8-1.2), BUN 71, eGFR 19 04/13/25: creatinine has down-trended to 1.5, BUN to 50, eGFR increased to 35 (improving kidney function after fluid resuscitation) In the contexts of fluids, patient is s/p 3 L, currently receiving another 1 L 1/2NS Diagnostic Inquiry -No current recommendation Treatment Plan -Fluid resuscitation: 1 L 1/2NS @ 125 mL/hr -Monitor renal panel -Avoid nephrotoxic agents (aminoglycosides, NSAIDs, radiographic contrast) -Adjust medication dosing based on patient's impaired renal function -Hold any SANG/ARB/diuretics #Acute blood loss normocytic anemia #History of peptic ulcer Admission Hgb 8.8 (MCV 97, RDW 49.0), previous Hgb in September was 10.8 04/13/25 Patient's hemoglobin has down-trended to 8.2 Rectal examination by GI showed grossly Hemoccult positive stool CTAP was negative for diverticulitis Patient has known history of peptic ulcer and is on home Plavix PT, INR, PTT within normal range on prior day. Diagnostic Inquiry -Patient refused to have EGD performed, origin of blood loss cannot currently be localized Treatment Plan -Patient typed and screened -Monitor H&H, transfusing for Hgb <7 or symptomatic -Avoid NSAIDs/ASA/chemical prophylaxis -IV Pantoprazole 40 mg BID -Holding home Plavix #Electrolyte derangements #Hypernatremia #(approaching) Hypokalemia #Hyperchloremia 04/13/25: Na 148, K 3.5, Cl 115 (yesterday was 135, 4.3, and 102 respectively) Likely due to over-infusion of NS maintenance fluid Diagnostic Inquiry -No current recommendation Treatment Plan -Changed maintenance fluid from NS to 1/2NS -Continue to monitor electrolytes, correcting as appropriate #Hypertension Admission BP 147/76 Last BP @ 12:00, 04/13/25 was 124/64 On home amlodipine, furosemide, losartan, and metoprolol succinate Diagnostic Inquiry -No current recommendation Treatment Plan -Continue to hold antihypertensives in the setting of suspected active GI bleeding #Hyperlipidemia #History of CAD s/p stenting Last lipid panel performed in September 2024 was relatively normal On home atorvastatin Diagnostic Inquiry -No current recommendation Treatment Plan -No current recommendation Hospital Management: Disposition: undergoing work-up and management of GI bleed and ENRIKE Diet: Clear liquid diet GI Prophylaxis: Protonix Bowel Prophylaxis: Senna DVT Prophylaxis: none (bleeding risk) CODE STATUS: Full Code
--- NOTE | 2025-04-13 11:18 | PC.SS ---
Patient Erna Hernandez is a 80 Year old female admitted for GI Bleed, Abdominal Pain. SS met with patient at bedside to discuss discharge plan and verify demographic information. Patient reports she lives at home with her son, Marbin Null who she reports is surrogate decision maker, [phone]. Patient reports she utilizes a cane and FWW at times, however does not use it daily. Patient reports she is able to complete all ADL's independently. Choice of pharmacy is [facility]. PCP is Berenice Nugent. At time of discharge patient will return back home. Patient's son will provide transportation. Discharge plan: Home Next of kin: Son, Marbin Null
[2025-04-13 12:00] VITALS: BP 124/64; PULSE 76; RESP 18; TEMP 36.2; O2SAT 96
[2025-04-13 14:02] LABS: Hematocrit 25.1 % (36.0-46.0)
[2025-04-13 14:03] LABS: Hemoglobin 8.2 g/dL (12.0-16.0)
[2025-04-13 16:00] VITALS: BP 142/60; PULSE 80; RESP 17; TEMP 36.8; O2SAT 97
--- NOTE | 2025-04-13 17:51 | PD.IMPROG ---
Documentation for date of: 04/13/25 Subjective Subjective Interval history: Patient evaluated Hemoglobin hematocrit 8.2 and 25.1 No signs of any active bleeding except Hemoccult positivity Patient was on the schedule after informed consent last night in [place] However today she has changed her mind and I did talk to her through the stenographic court reporter I have canceled the procedure as she does not want it Advance to peptic ulcer disease Exam Vital Signs Temp Pulse Resp BP Pulse Ox O2 Del Method 98.2 F 80 17 142/60 H 97 Room Air 04/13/25 16:00 04/13/25 16:00 04/13/25 16:00 04/13/25 16:00 04/13/25 16:00 04/13/25 16:00 Objective Labs 04/13/25 13:32 04/13/25 05:13 Labs: Laboratory Results - last 24 hr 04/13/25 04/13/25 05:13 13:32 WBC 5.1 RBC 2.58 L Hgb 8.2 L 8.2 L Hct 24.9 L 25.1 L MCV 97 MCH 31.8 MCHC 32.9 RDW Std Deviation 47.6 H Plt Count 227 D Neut % (Auto) 58 Lymph % (Auto) 17 [place] % (Auto) 15 H Eos % (Auto) 8 Baso % (Auto) 1 Neut # (Auto) 2.9 Lymph # (Auto) 0.9 L [place] # (Auto) 0.8 Eos # (Auto) 0.4 Baso # (Auto) 0.1 Immature Gran # (Auto) 0.01 H Absolute Nucleated RBC 0.00 Immature Gran % 0 Nucleated RBC % 0 Sodium 148 H D Potassium 3.5 D Chloride 115 H Carbon Dioxide 20.3 Anion Gap 13 BUN 50 H Creatinine 1.5 H D Estim Creat Clear Calc 26.5 L eGFR 35 L BUN/Creatinine Ratio 33 H Glucose 89 Calculated Osmolality 306 H Calcium 9.0 Corrected Calcium 9.0 Phosphorus 3.6 Magnesium 2.7 H Total Bilirubin 0.4 AST 20 ALT 8 L Alkaline Phosphatase 62 Total Protein 6.2 Albumin 4.1 D Globulin 2.1 L Albumin/Globulin Ratio 2.0 Impressions Impression: # Occult GI bleeding # Hemoccult positive stool # Posthemorrhagic anemia Advance diet Cancel the EGD Assessment & Plan A&P Narrative # Pain abdomen epigastric right upper quadrant # Nausea vomiting # Posthemorrhagic anemia acute # FOBT positive plan IV Protonix fiberoptic esophagogastroduodenoscopy with possible biopsy possible therapeutic intervention under intravenous moderate sedation schedule for tomorrow n.p.o. secondary to right serial CBC if the hemoglobin drops below 7 g . PRBC transfusion other medical problems include Hyperlipidemia Essential hypertension thank you very much for the opportunity to participate in the care of this patient Time Spent With Patient Time: Total time spent is greater than 50% in coordination of care (as documented) at patient's floor/unit and/or counseling patient:
[2025-04-13 20:00] VITALS: BP 157/88; PULSE 101; RESP 18; TEMP 36.8; O2SAT 96
[2025-04-13] MEDS: SODIUM CHLORIDE 0.45 % 1,000 ML 125 ML IV (21:21)
[2025-04-14] VITALS (9 sets, daily range): BP systolic 151–174; BP diastolic 56–84; PULSE 80–97; RESP 17–19; TEMP 36.2–37.4; O2SAT 95–97
[2025-04-14 06:01] LABS: Basophils # (Auto) 0.1 Thou/mm3 (0.0-0.2); Basophils % (Auto) 2 % (0-2.5); Eosinophils # (Auto) 0.3 Thou/mm3 (0.0-0.5); Eosinophils % (Auto) 5 % (0-10); Hematocrit 23.3 % (36.0-46.0); Hemoglobin 7.6 g/dL (12.0-16.0); Immature Granulocytes Auto 0.01 Thou/mm3 (0.00-0.00); Lymphocytes # (Auto) 0.9 Thou/mm3 (1.0-4.8); Lymphocytes % (Auto) 17 % (10-50); Mean Corpuscular HGB Conc 32.6 g/dl (31.0-37.0); Mean Corpuscular Hemoglobin 31.9 pg (25.0-35.0); Mean Corpuscular Volume 98 fL (80-100); Monocytes # (Auto) 0.7 Thou/mm3 (0.0-0.8); Monocytes % (Auto) 13 % (0-12); Neutrophils # (Auto) 3.5 Thou/mm3 (1.8-7.7); Neutrophils % (Auto) 64 % (37-80); Nucleated Red Blood Cell # 0.00 Thou/mm3 (0.00-0.00); Nucleated Red Blood Cell % 0 /100 WBC (0); Platelet Count 226 Thou/mm3 (140-440); RDW Standard Deviation 49.3 fL (36.4-46.3); Red Blood Count 2.38 Miln/mm3 (4.00-5.20); White Blood Count 5.5 Thou/mm3 (3.6-11.0)
[2025-04-14 06:45] LABS: Alanine Aminotransferase 8 U/L (10-49); Albumin, Serum 3.7 gm/dL (3.4-4.8); Albumin/Globulin Ratio 1.9 (1.2-2.2); Alkaline Phosphatase 57 U/L (46-116); Anion Gap 13 (7-16); Aspartate Amino Transferase 27 U/L (0-34); BUN/Creatinine Ratio 23 Ratio (12-20); Bilirubin,Total 0.4 mg/dL (0.3-1.2); Blood Urea Nitrogen 21 mg/dL (9-23); Calcium 8.4 mg/dL (8.3-10.6); Calcium (Corrected) 8.6 mg/dL (8.5-10.1); Carbon Dioxide 19.0 mMol/L (20.0-31.0); Chloride 117 mMol/L (98-107); Creatinine (Component) 0.9 mg/dL (0.6-1.3); Estimated Creatinine Clearance 44.2 mL/min (>60); Globulin 2.0 gm/dL (2.3-3.5); Glucose 80 mg/dL (74-106); Magnesium 2.1 mg/dL (1.6-2.6); Osmolality,Calculated 298 (275-295); Phosphorous 2.3 mg/dL (2.4-5.1); Potassium 3.8 mMol/L (3.4-5.1); Sodium 149 mMol/L (136-145); Total Protein 5.7 gm/dL (5.7-8.2); eGFR > 60 See Note
--- NOTE | 2025-04-14 10:38 | PC.NURSE ---
pt with new orders to transfuse 1 unit PRBC. Verified with patient that MD spoke with them regarding need for transfusion, questions asked and answered consent obtained.
--- NOTE | 2025-04-14 12:46 | PD.RESDS ---
Planned Discharge Date 04/14/25 DS: Providers Provider Date of admission: 04/12/25 20:30 Primary care physician: Berenice Nugent MD Admitting Provider: Berenice Nugent MD Attending Provider on Admission: Berenice Nugent MD Consults: 04/12/25 18:42 Consult to Gastroenterology Stat Comment: UGIB Consulting Provider: Lindsay Worthy Attending Provider on DC: RESIDENT Donte Discharging Provider: RESIDENT Donte DS: Diagnosis Problem List Completed Was Problem List Reviewed/Reconciled?: Yes Hospital Course Hospital Course Hospital course: Summary: Erna Hernandez is an 80-year-old F with a PMH of peptic ulcers, HTN, HLD, and CAD s/p stenting who presented to the ED on 04/12/25 with epigastric pain radiating up the chest and straight to the back. ER: Patient presented to the ED and was seen by ED provider at 15:40 on 04/12/25 for their presentation of epigastric pain which radiates up into the chest and straight to the back. At the time, labs were remarkable for low Hgb 8.8, high BUN 71, high creatinine 2.5, low eGFR 19 and UDS (+) for fentanyl. Pertinent imaging findings were CTAP showing moderate renal parenchymal scar formation without hydronephrosis or ureteral calculi, cystitis pattern, normal appendix, and no bowel obstruction or diverticulitis. Patient was given Maalox, IV Protonix, and 1 L lactated Ringer's bolus. GI (Dr. Worthy) was consulted and patient was admitted by the IM team for work-up and management of GI bleed and NERIKE. Hospital: During patient's hospital course, the main medical diagnoses addressed were GI bleed and ENRIKE. In terms of GI bleed, patient was placed on GI prophylaxis consisting of IV Protonix 40 mg BID and had her home Plavix held. However, patient refused to submit to endoscopic exploration by GI despite her Hgb dropping steadily from 8.8 on 04/12/25 to 7.6 on 04/14/25 and the decision was made to instead to transfuse her one time with pRBCs and discharge her with PPIs. In terms of ENRIKE, patient was infused with a total of 3 L NS maintenance fluid over her hospital stay which resolved the temporary drop in kidney function. Her creatinine improved from 2.5 to 0.9, BUN from 71 to 21, and eGFR from 19 to >60. Patient is safe to discharge to home. Further discharge instructions below. #ENRIKE vs. ENRIKE on CKD, likely prerenal (BUN/creatinine ratio 28) #likely 2/2 to intravascular fluid depletion (in the setting of suspected active bleeding) #Acute blood loss normocytic anemia #History of peptic ulcer #Electrolyte derangements #Hypernatremia #Hyperchloremia #Hypertension #Hyperlipidemia #History of CAD s/p stenting Status at Discharge Cognitive/Behavioral Status at Discharge: stable Functional Status at Discharge: independent ambulation Overall Status at Discharge: patient is back to baseline Total Time Spent Providing and/or Coordinating Discharge Services: at least 30 minutes of care and coordination Status at Discharge Cognitive/behavioral status at discharge: stable Functional status at discharge: independent ambulation Overall status at discharge: patient is back to baseline Time Spent with Patient Time attestation: Total time spent providing and/or coordinating discharge services: Time spent: Greater than 30 minutes Exam Vital Signs Temp Pulse Resp BP Pulse Ox O2 Del Method 97.1 F 86 17 172/70 H 96 Room Air 04/14/25 12:00 04/14/25 12:00 04/14/25 12:00 04/14/25 12:00 04/14/25 12:00 04/14/25 12:00 Narrative Exam Physical Exam: General: A/O x3, no acute distress, well-nourished, well-developed. Patient's son at bedside Skin: Warm, dry, intact, no obvious rash. Head: Normocephalic, atraumatic. Eyes: PERRL, EOMI. Anicteric, vision grossly intact. Ears: No ear pain, no ear discharge, Hearing grossly intact. Nose: No nasal discharge. Mouth/Throat: Oral mucosa moist. No obvious lesions in oropharynx. Neck: Neck supple, non-tender, no cervical lymphadenopathy. Cardiovascular: Systolic murmur noted. Regular rate and rhythm, no JVD or carotid bruits. +S1/S2. Respiratory: Bilateral lungs are clear to auscultation and percussion, respirations unlabored, no crackles, no wheezing. No accessory muscle use. Gastrointestinal: non tender, Soft, non-distended. No guarding or rebound tenderness. Peristalsis present. Extremities: Symmetrical, no significant deformities. No edema, no cyanosis, no clubbing. 2+ radial pulse bilaterally, 2+ posterior tibial pulse bilaterally. Neuro: No focal deficits observed. Conversant, moving all extremities. No overt cerebellar signs/incoordination. Psychiatric: Cooperative, appropriate affect. Discharge Plan Plan Patient Disposition: HOME (Self Care) Prescriptions/Referrals Prescriptions/Med Rec: New pantoprazole 20 mg tablet,delayed release (DR/EC) 20 mg PO QDAY Qty: 30 0RF Continued metoprolol succinate 50 mg Tablet Extended Release 24 Hr 50 mg PO QDAY amlodipine 5 mg Tablet 5 mg PO QDAY furosemide 20 mg Tablet 40 mg PO QDAY atorvastatin 20 mg tablet 20 mg PO HS aspirin 81 mg tablet,delayed release (DR/EC) 81 mg PO QDAY Patient Comments: TAKE 1 TABLET BY MOUTH ONCE DAILY hydralazine 10 mg Tablet 50 mg PO BID losartan 100 mg Tablet 100 mg PO QDAY Qty: 30 0RF Held clopidogrel [Plavix] 75 mg Tablet 75 mg PO QDAY Hold Instructions: Resume on 04/21/25. hold for dark stools Referrals: Berenice Nugent MD [Primary Care Provider] - Patient/Caregiver Discharge Instructions Discharge Activity: activity as tolerated Print Language: Sinhala Activity Restrictions/Additional Instructions: f/u with dr. nugent, dr. worthy in 1-2 weeks Stand Alone Forms: [employer] Award Info., Patient Portal Info Letter Discharge Order Discharge Orders: Discharge (Routine); Ordered 04/14/25 Ordered By: Berenice Nugent Quality Discharge Quality Measures none (bleeding risk, VTE prophylaxis contraindicated) Attestestation MD Attestation Patient seen and examined with resident physician Dr. Larsen. Note reviewed, agree with findings and recommendations. Patient admitted with Epigastric pain, Black stools. Mild anemia noted. Patient will be seen by Dr. Worthy. Absolutely refuses to go for endoscopy. Will monitor closely on PPIs. 04/14/2025 Patient denies any abdominal pain. Noted hemoglobin dropped. 1 unit of blood transfusion ordered. Decided to discharge her on the proton pump inhibitors. Spoke to Dr. Worthy-she absolutely refuses EGD despite explaining the risk of bleeding. Will hold Plavix for 1 week and follow-up with Dr. Worthy in the outpatient setting. Son at bedside and he agreed with the plan of care.
--- NOTE | 2025-04-14 16:32 | PD.IMPROG ---
Documentation for date of: 04/14/25 Subjective Subjective Interval history: Hemoglobin hematocrit down to 7.6 and 23.3 Case discussed with the attending physician patient has refused endoscopy Exam Vital Signs Temp Pulse Resp BP Pulse Ox O2 Del Method 99.4 F 80 18 172/70 H 97 Room Air 04/14/25 16:00 04/14/25 16:00 04/14/25 16:00 04/14/25 16:00 04/14/25 16:00 04/14/25 16:00 Objective Labs 04/14/25 04:25 04/14/25 04:25 Labs: Laboratory Results - last 24 hr 04/14/25 04/14/25 04:25 11:29 WBC 5.5 RBC 2.38 L Hgb 7.6 L Hct 23.3 L MCV 98 MCH 31.9 MCHC 32.6 RDW Std Deviation 49.3 H Plt Count 226 Neut % (Auto) 64 Lymph % (Auto) 17 [place] % (Auto) 13 H Eos % (Auto) 5 Baso % (Auto) 2 Neut # (Auto) 3.5 Lymph # (Auto) 0.[address] [place] # (Auto) 0.7 Eos # (Auto) 0.3 Baso # (Auto) 0.1 Immature Gran # (Auto) 0.01 H Absolute Nucleated RBC 0.00 Immature Gran % 0 Nucleated RBC % 0 Sodium 149 H Potassium 3.8 Chloride 117 H Carbon Dioxide 19.0 L Anion Gap 13 BUN 21 Creatinine 0.9 D Estim Creat Clear Calc 44.2 L eGFR > 60 BUN/Creatinine Ratio 23 H Glucose 80 Calculated Osmolality 298 H Calcium 8.4 Corrected Calcium 8.6 Phosphorus 2.3 L Magnesium 2.1 Total Bilirubin 0.4 AST 27 ALT 8 L Alkaline Phosphatase 57 Total Protein 5.7 Albumin 3.7 Globulin 2.0 L Albumin/Globulin Ratio 1.9 Blood Type O Positive Antibody Screen NEGATIVE Crossmatch See Detail Blood Bank Wristband ID Yes Impressions Impression: Posthemorrhagic anemia Downtrending hemoglobin hematocrit Uncooperative patient refusing endoscopy Case discussed with internal medicine attending physician No need to push the patient and patient can be discharged home and outpatient follow-up with a CBC Assessment & Plan A&P Narrative # Pain abdomen epigastric right upper quadrant # Nausea vomiting # Posthemorrhagic anemia acute # FOBT positive plan IV Protonix fiberoptic esophagogastroduodenoscopy with possible biopsy possible therapeutic intervention under intravenous moderate sedation schedule for tomorrow n.p.o. secondary to right serial CBC if the hemoglobin drops below 7 g . PRBC transfusion other medical problems include Hyperlipidemia Essential hypertension thank you very much for the opportunity to participate in the care of this patient Time Spent With Patient Time: Total time spent is greater than 50% in coordination of care (as documented) at patient's floor/unit and/or counseling patient:
== END 2025-04-14 17:09 | disposition home or self-care (01) | DRG 378 ==
LOC: SERX 18:46 → S3SX 22:42 → SERHOLD 04-13 05:37
PROVIDERS: Registered Nurse General Practice; Admitting Provider Internal Medicine; Emergency Provider Emergency Medicine; PCP Internal Medicine; Visit Provider Internal Medicine
DX: K92.2 Gastrointestinal hemorrhage, unspecified (principal); D62 Acute posthemorrhagic anemia; N17.9 Acute kidney failure, unspecified; E87.0 Hyperosmolality and hypernatremia; I10 Essential (primary) hypertension; E78.5 Hyperlipidemia, unspecified; K44.9 Diaphragmatic hernia without obstruction or gangrene; E87.6 Hypokalemia; E87.8 Other disorders of electrolyte and fluid balance, not elsewhere classified; I25.10 Atherosclerotic heart disease of native coronary artery without angina pectoris; Z95.5 Presence of coronary angioplasty implant and graft; Z79.899 Other long term (current) drug therapy; E86.9 Volume depletion, unspecified; Z87.11 Personal history of peptic ulcer disease; Z53.29 Procedure and treatment not carried out because of patient's decision for other reasons
CPT/HCPCS: 36415; 74176; 80053; 80307; 81001; 83690; 83735; 83880; 84100; 84484; 85014; 85018; 85025; 85610; 85730; 86850; 86900; 86901; 86923; 93005; 96361; 96374; 96376; 99284; J2470; J7030; J7120; P9016; A9270

== ENCOUNTER 2025-05-21 14:38 | Emergency (ER) | payer OTHER, MEDICAID, SELFPAY ==
--- NOTE | 2025-05-21 14:48 | EKG_ITS ---
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
--- NOTE | 2025-05-21 14:59 | EDNOTE_ITS ---
<Statement entered by Carissa Luque MD - 05/22/25 06:31> As co-signing physician, I was present and available for consult prn. I concur with the plan and care as documented by the midlevel provider. ED General RME/HPI General Chief complaint: Dizziness Stated complaint: CXP/DIZZY/FALL x 2 WEEKS STOMACH CRUMBLING Time Seen by Provider: 05/21/25 14:51 Arrival date/time: 05/21/25 14:38 CC: Chest pain HPI onset for 2 days patient points to her left anterior chest states she has fregoso d sharp chest pain ongoing for the past 2 days no prior history of similar events. Also states she has had mild dizziness. The patient is not sure if this is related to a fall that she had 2 weeks ago. Patient is awake alert oriented nontoxic-appearing not in any acute distress. Localized pain is 1-2 on a 10 scale. Patient is unable to recall who her primary care doctor is Related Data Home Medications ?Medication ?Instructions ?Recorded ?Confirmed hydralazine 10 mg tablet 50 mg PO BID 06/15/22 amlodipine 5 mg tablet 5 mg PO QDAY 07/21/24 atorvastatin 20 mg tablet 20 mg PO HS 07/21/24 5 clopidogrel 75 mg tablet (Plavix) 75 mg PO QDAY 04/12/25 Held on 04/14/25. Instructions: Resume on 04/21/25. hold for dark stools furosemide 20 mg tablet 40 mg PO QDAY 07/21/2404/12 metoprolol succinate 50 mg 50 mg PO QDAY 07/21/2403/30 tablet,extended release 24 hr aspirin 81 mg tablet,delayed 81 mg PO QDAY 04/12/25 release Previous Rx's ?Medication ?Instructions ?Recorded losartan 100 mg tablet 100 mg PO QDAY #30 tabs 10/08 03/29 pantoprazole 20 mg tablet,delayed 20 mg PO QDAY #30 ta bs 04/14/25 release Allergies Allergy/AdvReac Type Severity Reaction Status Date / Time No Known Allergies Allergy Verified 05/21/25 14:46 Review of Systems Review of Systems Narrative Review of Systems: GEN: No fever, no chills, no weight loss EYES: No discharge, no visual changes, no pain HEENT: No ear pain, no congestion, no sore throat PULM: No shortness of breath, no cough, no congestion CV: + chest pain, no dyspnea on exertion, no palpitations GI: No nausea, no vomiting, no diarrhea, no pain, no constipation : No frequency, no urgency, no dysuria MUSC/SKEL: No joint pain, no back pain SKIN: No rash PSYCH: No hallucinations, no depression HEME/LYMPH: No easy bleeding or bruising tendencies NEURO: No weakness, no headache Past Medical History Past Medical History NEUROLOGIC: Negative Neurological Disorders, Cerebrovascular Accident, Transient Ischemic Attacks (TIA), Dementia, Alzheimer's Disease, Parkinson's Disease, Brain Tumor, Meningitis, Seizures, Epilepsy, Multiple Sclerosis, Cerebral Palsy, Amyotrophic Lateral Sclerosis (ALS/Shereen Gehrig's), Guillain-[place] Syndrome, Spina Bifida, Paralysis, Peripheral Neuropathy, Ulloa's Palsy, Subdural Hematoma, Migraine, Head Trauma, Spinal Cord Injury or Traumatic Brain Injury CARDIAC: Positive Cardiac Disorders, Hypercholesterolemia, Edema and Hypertension; Negative Myocardial Infarction, Cardiac Arrhythmia, Atrial Fibrillation, Angina, Heart Murmur, Coronary Artery Disease, Atherosclerotic Heart Disease, Peripheral Vascular Disease, Aneurysm, Congestive Heart Failure, Congenital Heart Disease, Valvular Heart Disease, Rheumatic Fever, Cardiomyopathy, Pericarditis, Cellulitis, Deep Vein Thrombosis, Hypotension or Varicose Veins RESPIRATORY: Negative Chronic Obstructive Pulmonary Disease (COPD), Asthma, Bronchitis, Emphysema, Pneumonia, Pulmonary Fibrosis, Cystic Fibrosis, Tuberculosis, Pulmonary Embolism, Pulmonary Edema or Sleep Apnea GASTROINTESTINAL: Positive Gastrointestinal Disorders, Ulcer and Hemorrhoids; Negative Hepatitis, Cirrhosis, Pancreatitis, Celiac Disease, Gall Bladder Disease, Gastrointestinal Bleed, Esophageal Varices, South's Esophagus, Colitis, Ulcerative Colitis, Diverticulitis, Diverticulosis, Colorectal Cancer, Irritable Bowel, Crohn's Disease, Obstructive Bowel, Hiatal Hernia, Gastroesophageal Reflux Disease or Obesity GENITOURINARY: Negative Genitourinary Disorders, Renal Disease, Kidney Stones, Polycystic Kidney Disease, Neurogenic Bladder, Inguinal Hernia or Dialysis REPRODUCTIVE: Positive Previous Pregnancies; Negative Breast Cancer, Endometriosis, Genital Herpes, Gonorrhea, Pelvic Inflammatory Disease, Syphilis or Uterine Prolapse MUSCULOSKELETAL: Positive Musculoskeletal Disorders, Arthritis and Fractures; Negative Muscular Dystrophy, Myasthenia Gravis, Marfan's Syndrome, Bone Cancer, Rheumatoid Arthritis, Osteoporosis, Degenerative Disk Disease, Gout, Scoliosis, Carpal Tunnel Syndrome, Fibromyalgia, Degenerative Joint Disease, Osteomyelitis or Poliovirus ENT: Negative Cataracts, Glaucoma, Blind, Retinal Detachment, Macular Degeneration, Ear Infection, Deafness, Head Trauma or Eye Prosthesis ENDOCRINE: Negative Endocrine Disorders, Diabetes Mellitus Type 1, Diabetes Mellitus Type 2, Hypoglycemia, [place]'s Syndrome, [place]'s Disease, Hyperthyroidism, Hypothyroidism, Parathyroid Disease, Pituitary Disease, Systemic Lupus Erythematosus, Syndrome of Inappropriate Antidiuretic Hormone (SIADH), Adrenal Disease or Graves' Disease HEMATOLOGIC: Positive Anemia; Negative Blood Disorders, Leukemia, Hemophilia, Thalassemia, Sickle Cell Disease or Clotting Problems PSYCHO/SOCIAL: Positive Depression and Anxiety; Negative Psychiatric Problems, Schizophrenia, Recreational Drug Use, Bipolar Disorder, Behavior Problems, Self-Mutilation, Attention Deficit Disorder, Attention Deficit Hyperactivity Disorder, Depression, Post Traumatic Stress Disorder or Eating Disorder OTHER HISTORY: Positive Hospitalization, Blood Transfusions and Anesthesia Reactions (Pt said she coded in the past during a procedure. but no allergic reactions); Negative Autoimmune Disease, Down Syndrome, Autism, Developmental Delay, Shingles, Falls, Blood Transfusion Reaction, Organ Transplant, Chemotherapy, Radiation Therapy, Hyperbaric Therapy, MRSA, VRSA, Vancomycin-Resistant Ent erococci, Human Immunodeficiency Virus (HIV), Chicken Pox, Measles, Mumps, Rubella (Ivorian Measles), Pertussis, Clostridium Difficile, Cancer, Breast Cancer, Cervical Cancer, Colorectal Cancer, Lung Cancer or Ovarian Cancer Family History FAMILY HISTORY: Positive Family Cardiac Disorders; Negative Family Psychiatric Problems, Family Respiratory Disorders, Family Gastrointestinal Problems, Family Cancer, Family Surgery or Family Anesthesia Reaction Surgical History SURGICAL: Positive Cardiac Surgery, Tubal Ligation and Section; Negative Open Heart Surgery, Coronary Artery Bypass Graft, Valve Replacement, Vascular Surgery, Coronary Stent, Cardiac Catheterization, Pacemaker, Angiogram, Auto Implanted Cardiovert Defib, Carotid Endarterectomy, Endocrine Surgery, Thyroidectomy, Ear Surgery, Tympanostomy Tube, Eye Surgery, Nose Surgery, Oral Surgery, Tonsillectomy, Adenoidectomy, Cochlear Implant, Corneal Transplant, Throat Surgery, Abdominal Surgery, Tracheostomy, Gastric Bypass Surgery, Gastrostomy, Bowel Surgery, Nephrectomy, Transurethral Resection, Joint Replacement, Amputation, Open Reduction Internal Fixation, Arthroscopy, Neurologic Surgery, Brain Shunt, Mastectomy, Lumpectomy, Hysterectomy, Vasectomy or Organ Transplant Social History SMOKING STATUS: Never smoker ED Exam Narrative Physical exam: [General: Obese not in any acute distress Head normocephalic HEENT: Within acceptable limits Neck is supple nontender Chest equal chest rise nontender to palpation Respiratory: Clear to auscultation no wheezes crackles or rubs CV: Rate rhythm is regular no murmurs rubs or clicks Abdomen is distended secondary to body habitus soft nontender no masses positive bowel sounds all 4 quadrants Back: No CVA tenderness no spinous process tenderness from cervical spine thoracic and lumbar spine Skin: Intact no petechiae rash induration ulceration or crepitus Extremities: Moving all extremity against resistance cap refill less than 2 seconds neurosensory intact Neuro: Awake alert oriented x3 Glascow coma 15 no focal deficits] Course Course Course Narrative: Patient is laboratory findings discussed with Dr. Nugent who states because the patient is worsening ENRIKE give her a liter of fluid and then she can be discharged home to follow-up in her clinic. Patient is in agreement with this plan. Quality Measures none Orders Category Date Time Status EKG (ED ONLY) *Do not use* NOW Care 05/21/25 14:48 Completed Saline [Insert IV] NOW Care 05/21/25 16:49 Active EKG (ED Only) Stat Exams 05/21/25 14:48 Draft XR chest 1V Stat Exams 05/21/25 14:59 Completed B-Type Natriuretic Peptide Stat Lab 05/21/25 15:15 Completed CBC Stat Lab 05/21/25 15:15 Completed Comprehensive Metabolic Panel Stat Lab 05/21/25 15:15 Completed Drug Screen,Urine Stat Lab 05/21/25 15:53 Completed LDH (Lactate Dehydrogenase) Stat Lab 05/21/25 15:15 Completed Magnesium Stat Lab 05/21/25 15:15 Completed Partial Thromboplastin Time Stat Lab 05/21/25 15:15 Completed Prothrombin Time with INR Stat Lab 05/21/25 15:15 Completed Troponin I Stat Lab 05/21/25 15:15 Completed Urinalysis, C/S if Indicated Stat Lab 05/21/25 15:53 Completed Ketorolac Inj [Toradol Inj] Med 05/21/25 16:49 Discontinued 15 mg IVP X1 ONE Sodium Chloride 0.9% 1000 ml [Ns] 1,000 ml Med 05/21/25 16:49 Discontinued IV 999 mls/hr Vital Signs Vital signs: Vital Signs Temperature 99 F 05/21/25 15:01 Pulse Rate 88 05/21/25 15:01 Respiratory Rate 18 05/21/25 15:01 Blood Pressure 153/76 H 05/21/25 15:01 Pulse Oximetry (%) 97 05/21/25 15:01 Oxygen Delivery Method Room Air 05/21/25 15:01 Discharge Plan Plan Patient Disposition: HOME (Self Care) Patient condition on transfer: Stable Prescriptions/Referrals Prescriptions/Med Rec: No Action metoprolol succinate 50 mg Tablet Extended Release 24 Hr 50 mg PO QDAY clopidogrel [Plavix] 75 mg Tablet 75 mg PO QDAY amlodipine 5 mg Tablet 5 mg PO QDAY furosemide 20 mg Tablet 40 mg PO QDAY atorvastatin 20 mg tablet 20 mg PO HS aspirin 81 mg tablet,delayed release (DR/EC) 81 mg PO QDAY Patient Comments: TAKE 1 TABLET BY MOUTH ONCE DAILY pantoprazole 20 mg tablet,delayed release (DR/EC) 20 mg PO QDAY Qty: 30 0RF hydralazine 10 mg Tablet 50 mg PO BID losartan 100 mg Tablet 100 mg PO QDAY Qty: 30 0RF Referrals: Berenice Nugent MD [Primary Care Provider, Nephrology] - In 1 week Problem List Clinical Impression: Chest pain, ENRIKE (acute kidney injury), Headache Patient/Caregiver Discharge Instructions Education Materials: Self-Care for Headaches, ED Chest Pain, Uncertain Cause Print Language: Indonesian Stand Alone Forms: Sparkbrowser Award Info., Work/School Release, Patient Portal Info Letter PA/DETECTIVE AND INTELLIGENCE ANALYST Supervising Physician PA/DETECTIVE AND INTELLIGENCE ANALYST Supervising Physician: Pedro Neal ENP MDM Clinical Information Provided by patient Medical Records Reviewed [facility] Meds/Rx Considered, not Ordered None Labs/Rad/Tests considered, not Ordered None EKG EKG Interpretation narrative: EKG performed at 1457 shows a ventricular rate of 85 MA interval 158 QRS of 87 QTc of 416 this is normal sinus rhythm. Lab Interpretation Lab(s) interpretation(s): CBC shows no leukocytosis H&H of 9.9 and 30.3. No thrombocytopenia Coags show PTT of 21.6 no other electrolyte imbalances CMP shows a CO2 of 17.9 BUN of 72 creatinine of 1.8 glucose of 168. Mag of 2.9 LDH of 274 BNP of 160 Troponin is unremarkable. Medication Administration(s) Medication Administration History Discontinued Medications Sodium Chloride (Ns) 1,000 mls @ 999 mls/hr IV .Q1H1M ONE Stop: 05/21/25 17:49 Last Admin: 05/21/25 19:46 Dose: 999 mls/hr Documented By: PATTI Ketorolac Tromethamine (Ketorolac Inj 30 Mg/Ml Vial) 15 mg IVP X1 ONE Stop: 05/21/25 16:50 Last Admin: 05/21/25 19:48 Dose: 15 mg Documented By: PATTI
--- NOTE | 2025-05-21 14:59 | XR_ITS ---
Examination: PA chest single view TECHNIQUE: Upright PA chest single view Date and time: May 21, 2025 1530 hours INDICATIONS: Chest pain today. FINDINGS: Normal heart size Small retrocardiac gastric hernia. Transcatheter aortic valve. No pneumonia or pulmonary edema IMPRESSION: No pneumonia or pulmonary edema
[2025-05-21 15:01] VITALS: BP 153/76; PULSE 88; RESP 18; TEMP 37.2; O2SAT 97; BMI 34.5
[2025-05-21 15:25] LABS: Basophils # (Auto) 0.1 Thou/mm3 (0.0-0.2); Basophils % (Auto) 1 % (0-2.5); Eosinophils # (Auto) 0.2 Thou/mm3 (0.0-0.5); Eosinophils % (Auto) 3 % (0-10); Hematocrit 30.3 % (36.0-46.0); Hemoglobin 9.9 g/dL (12.0-16.0); Immature Granulocytes Auto 0.02 Thou/mm3 (0.00-0.00); Lymphocytes # (Auto) 1.3 Thou/mm3 (1.0-4.8); Lymphocytes % (Auto) 21 % (10-50); Mean Corpuscular HGB Conc 32.7 g/dl (31.0-37.0); Mean Corpuscular Hemoglobin 31.3 pg (25.0-35.0); Mean Corpuscular Volume 96 fL (80-100); Monocytes # (Auto) 0.6 Thou/mm3 (0.0-0.8); Monocytes % (Auto) 10 % (0-12); Neutrophils # (Auto) 4.0 Thou/mm3 (1.8-7.7); Neutrophils % (Auto) 64 % (37-80); Nucleated Red Blood Cell # 0.00 Thou/mm3 (0.00-0.00); Nucleated Red Blood Cell % 0 /100 WBC (0); Platelet Count 233 Thou/mm3 (140-440); RDW Standard Deviation 55.3 fL (36.4-46.3); Red Blood Count 3.16 Miln/mm3 (4.00-5.20); White Blood Count 6.2 Thou/mm3 (3.6-11.0)
[2025-05-21 15:43] LABS: B-Type Natriuretic Peptide 160 pg/mL (0-100)
[2025-05-21 15:50] LABS: INR 0.9 (0.9-1.3); Partial Thromboplastin Time 21.6 Seconds (22.0-36.0); Prothrombin Time 10.1 Seconds (9.0-12.2)
[2025-05-21 15:57] LABS: Alanine Aminotransferase 7 U/L (10-49); Albumin, Serum 4.7 gm/dL (3.4-4.8); Albumin/Globulin Ratio 1.9 (1.2-2.2); Alkaline Phosphatase 76 U/L (46-116); Anion Gap 13 (7-16); Aspartate Amino Transferase 21 U/L (0-34); BUN/Creatinine Ratio 40 Ratio (12-20); Bilirubin,Total 0.4 mg/dL (0.3-1.2); Blood Urea Nitrogen 72 mg/dL (9-23); Calcium 9.1 mg/dL (8.3-10.6); Calcium (Corrected) 9.1 mg/dL (8.5-10.1); Carbon Dioxide 17.9 mMol/L (20.0-31.0); Chloride 105 mMol/L (98-107); Creatinine (Component) 1.8 mg/dL (0.6-1.3); Estimated Creatinine Clearance 20.1 mL/min (>60); Globulin 2.5 gm/dL (2.3-3.5); Glucose 168 mg/dL (74-106); LDH (Lactate Dehydrogenase) 274 U/L (120-246); Magnesium 2.9 mg/dL (1.6-2.6); Osmolality,Calculated 297 (275-295); Potassium 4.6 mMol/L (3.4-5.1); Sodium 136 mMol/L (136-145); Total Protein 7.2 gm/dL (5.7-8.2); Troponin I < 0.020 ng/mL (0.0-0.045); eGFR 28 See Note
[2025-05-21 16:33] LABS: Collection Type, Urine Clean Catch
[2025-05-21 16:45] LABS: Amphetamine/Methamp Scrn,U Negative (Negative); Barbiturate Screen,Urine Negative (Negative); Benzodiazepines Screen,Urine Negative (Negative); Benzoylecgonine Screen, Ur Negative (Negative); Fentanyl Screen,Urine Negative (Negative); Opiate Screen,Urine Negative (Negative); THC Screen,Urine Negative (Negative)
[2025-05-21 16:49] LABS: Bilirubin,Urine Negative (Negative); Blood,Urine Negative (Negative); Clarity,Urine Clear (Clear/Hazy); Color,Urine Colorless (Lt Yel-Yel); Culture Indicated,Urine Not Indicated; Glucose, Urine Negative (Negative); Ketones,Urine Negative (Negative); Leukocyte Esterase,Urine Negative (Negative); Nitrite,Urine Negative (Negative); PH,Urine 5.5 (5.0-7.0); Protein,Urine Negative (Neg - Trace); RBC,Urine < 1 /hpf (0-3); Specific Gravity,Urine 1.012 (1.001-1.035); Squamous Epithelial Cell,Urine 2 /hpf (0-5); Urobilinogen,Urine Negative mg/dL (0.0-1.0); WBC,Urine < 1 /hpf (0-5)
[2025-05-21] MEDS: SODIUM CHLORIDE 0.9% 1000 ML 1,000 ML 999 ML IV (19:46)
[2025-05-21] MEDS: KETOROLAC INJ 30 MG/ML VIAL 15 MG IVP (19:48)
== END 2025-05-21 21:23 | disposition home or self-care (01) ==
PROVIDERS: Registered Nurse General Practice; Emergency Provider Emergency Medicine; PCP Internal Medicine
DX: N17.9 Acute kidney failure, unspecified (principal); R51.9 Headache, unspecified; R07.9 Chest pain, unspecified; I10 Essential (primary) hypertension; E78.00 Pure hypercholesterolemia, unspecified
CPT/HCPCS: 36415; 71045; 80053; 80307; 81001; 83615; 83735; 83880; 84484; 85025; 85610; 85730; 93005; 96374; 99284; J1885; J7030

== ENCOUNTER 2025-05-28 18:05 | Emergency (ER) | payer OTHER, MEDICAID, SELFPAY ==
[2025-05-28 18:06] VITALS: BMI 28.3
[2025-05-28 18:34] VITALS: BP 151/78; PULSE 88; RESP 18; TEMP 36.8; O2SAT 97
--- NOTE | 2025-05-28 18:44 | PD.EDRME ---
Rapid Medical Screening Exam RME Arrival date/time: 05/28/25 18:05 Chief Complaint: Headache Time Seen by Provider: 05/28/25 18:19 Vital signs: Vital Signs Temperature 98.3 F 05/28/25 18:34 Pulse Rate 88 05/28/25 18:34 Respiratory Rate 18 05/28/25 18:34 Blood Pressure 151/78 H 05/28/25 18:34 Pulse Oximetry (%) 97 05/28/25 18:34 Oxygen Delivery Method Room Air 05/28/25 18:34 E Narrative: Headache s/p fall and head injury 3 weeks ago. Patient states she got dizzy and passed out. Takes baby ASA and plavix daily
--- NOTE | 2025-05-28 18:46 | EKG_ITS ---
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
--- NOTE | 2025-05-28 18:46 | XR_ITS ---
Examination: CT brain head without contrast. 2-D sagittal coronal reconstructions Date and time of exam:May 28, 2025, 1920 hrs. Indications: Ground-level fall today with injury to the head, head pain CTDI: vol (mGy):46.9 DLP: (mGycm):926 Technique: Multiple CT axial sections of the brain have been obtained, 5 mm slice thickness. Contrast has not been administered. 2-D sagittal, coronal reconstructions have been obtained Low dose protocols were performed. One or more of the following dose reduction techniques were used; automated exposure control, adjustment of the mA and/or KV according to patient size, use of iterative reconstruction technique. Findings: No significant ventricular enlargement. Intra-axial or extra-axial hemorrhage density is not seen. No mass effect or midline shift Basal cisterns are not remarkable. Fourth ventricle is midline. Cranial vault intact. Impression: Negative for acute hemorrhage, mass effect or midline shift
[2025-05-28 19:39] LABS: Basophils # (Auto) 0.1 Thou/mm3 (0.0-0.2); Basophils % (Auto) 1 % (0-2.5); Eosinophils # (Auto) 0.2 Thou/mm3 (0.0-0.5); Eosinophils % (Auto) 3 % (0-10); Hematocrit 31.0 % (36.0-46.0); Hemoglobin 9.9 g/dL (12.0-16.0); Immature Granulocytes Auto 0.02 Thou/mm3 (0.00-0.00); Lymphocytes # (Auto) 1.2 Thou/mm3 (1.0-4.8); Lymphocytes % (Auto) 19 % (10-50); Mean Corpuscular HGB Conc 31.9 g/dl (31.0-37.0); Mean Corpuscular Hemoglobin 31.3 pg (25.0-35.0); Mean Corpuscular Volume 98 fL (80-100); Monocytes # (Auto) 0.8 Thou/mm3 (0.0-0.8); Monocytes % (Auto) 12 % (0-12); Neutrophils # (Auto) 4.2 Thou/mm3 (1.8-7.7); Neutrophils % (Auto) 64 % (37-80); Nucleated Red Blood Cell # 0.00 Thou/mm3 (0.00-0.00); Nucleated Red Blood Cell % 0 /100 WBC (0); Platelet Count 264 Thou/mm3 (140-440); RDW Standard Deviation 59.5 fL (36.4-46.3); Red Blood Count 3.16 Miln/mm3 (4.00-5.20); White Blood Count 6.5 Thou/mm3 (3.6-11.0)
[2025-05-28 19:52] LABS: Collection Type, Urine Clean Catch
[2025-05-28 20:02] LABS: Alanine Aminotransferase 11 U/L (10-49); Albumin, Serum 5.1 gm/dL (3.4-4.8); Albumin/Globulin Ratio 1.8 (1.2-2.2); Alkaline Phosphatase 80 U/L (46-116); Anion Gap 11 (7-16); Aspartate Amino Transferase 27 U/L (0-34); BUN/Creatinine Ratio 31 Ratio (12-20); Bilirubin,Total 0.4 mg/dL (0.3-1.2); Blood Urea Nitrogen 50 mg/dL (9-23); Calcium 9.6 mg/dL (8.3-10.6); Calcium (Corrected) 9.6 mg/dL (8.5-10.1); Carbon Dioxide 20.8 mMol/L (20.0-31.0); Chloride 109 mMol/L (98-107); Creatinine (Component) 1.6 mg/dL (0.6-1.3); Estimated Creatinine Clearance 24.7 mL/min (>60); Globulin 2.8 gm/dL (2.3-3.5); Glucose 96 mg/dL (74-106); INR 0.9 (0.9-1.3); Osmolality,Calculated 294 (275-295); Partial Thromboplastin Time 23.3 Seconds (22.0-36.0); Potassium 4.4 mMol/L (3.4-5.1); Prothrombin Time 10.2 Seconds (9.0-12.2); Sodium 141 mMol/L (136-145); Total Protein 7.9 gm/dL (5.7-8.2); Troponin I < 0.020 ng/mL (0.0-0.045); eGFR 32 See Note
[2025-05-28 20:09] LABS: Bilirubin,Urine Negative (Negative); Blood,Urine Negative (Negative); Clarity,Urine Clear (Clear/Hazy); Color,Urine Yellow (Lt Yel-Yel); Glucose, Urine Negative (Negative); Hyaline Casts,Urine 1 /hpf (0-1); Ketones,Urine Negative (Negative); Leukocyte Esterase,Urine Positive (Negative); Nitrite,Urine Negative (Negative); PH,Urine 5.5 (5.0-7.0); Protein,Urine Negative (Neg - Trace); RBC,Urine < 1 /hpf (0-3); Specific Gravity,Urine 1.017 (1.001-1.035); Squamous Epithelial Cell,Urine < 1 /hpf (0-5); Urobilinogen,Urine Negative mg/dL (0.0-1.0); WBC,Urine 1 /hpf (0-5)
--- NOTE | 2025-05-28 20:50 | PD.EDHA ---
ED Headache RME/HPI General Chief Complaint: Headache Stated Complaint: HEAD PAIN S/P 20 D AGO Time Seen by Provider: 05/28/25 18:19 Arrival date/time: 05/28/25 18:05 RME / HPI RME / HPI Narrative: Headache s/p fall and head injury 3 weeks ago. Patient states she got dizzy and passed out. Takes baby ASA and plavix daily DR. BARON MAIN ED EVALUATION: 80 y/o female with Hx of HTN and Anemia presents with worsening posterior headache that radiates to the right side s/p fall x 2-3 days ago. Denies ever experiencing this pain before. No other complaints. Related Data Home Medications ?Medication ?Instructions ?Recorded ?Confirmed hydralazine 10 mg tablet 50 mg PO BID 06/15/22 04/12/25 amlodipine 5 mg tablet 5 mg PO QDAY 07/21/24 04/12/25 atorvastatin 20 mg tablet 20 mg PO HS 07/21/24 04/12/25 clopidogrel 75 mg tablet (Plavix) 75 mg PO QDAY 07/21/24 04/12/25 Held on 04/14/25. Instructions: Resume on 04/21/25. hold for dark stools furosemide 20 mg tablet 40 mg PO QDAY 07/21/24 04/12/25 metoprolol succinate 50 mg 50 mg PO QDAY 07/21/24 04/12/25 tablet,extended release 24 hr aspirin 81 mg tablet,delayed 81 mg PO QDAY 04/12/25 04/12/25 release Previous Rx's ?Medication ?Instructions ?Recorded losartan 100 mg tablet 100 mg PO QDAY #30 tabs 11/02/23 pantoprazole 20 mg tablet,delayed 20 mg PO QDAY #30 tabs 04/14/25 release Allergies Allergy/AdvReac Type Severity Reaction Status Date / Time No Known Allergies Allergy Verified 05/28/25 18:09 Review of Systems Review of Systems Systems Reviewed: All systems reviewed, normal except as documented Past Medical History Past Medical History CARDIAC: Positive Cardiac Disorders, Hypercholesterolemia, Edema and Hypertension GASTROINTESTINAL: Positive Gastrointestinal Disorders, Ulcer and Hemorrhoids REPRODUCTIVE: Positive Previous Pregnancies MUSCULOSKELETAL: Positive Musculoskeletal Disorders, Arthritis and Fractures HEMATOLOGIC: Positive Anemia PSYCHO/SOCIAL: Positive Depression and Anxiety OTHER HISTORY: Positive Hospitalization, Blood Transfusions and Anesthesia Reactions Family History FAMILY HISTORY: Positive Family Cardiac Disorders Surgical History SURGICAL: Positive Cardiac Surgery and Section ED Exam Narrative Physical exam: Generally patient is alert and in no obvious distress, neurologic exam showed no focal motor deficits with a [place] Coma Scale of 15, head is normocephalic atraumatic, neck shows no midline tenderness and nontender to head compression, heart regular rate and rhythm, lungs clear to auscultation equal bilaterally, abdomen soft bowel sounds present soft nontender, skin is warm pale and dry Course Quality Measures none Orders Category Date Time Status EKG (ED ONLY) *Do not use* NOW Care 05/28/25 18:[address] head/brain wo con Stat Exams 05/28/25 18:46 Completed EKG (ED Only) Stat Exams 05/28/25 18:46 Draft CBC Stat Lab 05/28/25 19:08 Completed CMP [Comprehensive Metabolic Panel] Stat Lab 05/28/25 19:08 Completed Partial Thromboplastin Time Stat Lab 05/28/25 19:08 Completed Prothrombin Time with INR Stat Lab 05/28/25 19:08 Completed Troponin I Stat Lab 05/28/25 19:08 Completed UA [Urinalysis] Stat Lab 05/28/25 19:43 Completed Ketorolac Inj [Toradol Inj] Med 05/28/25 20:53 Discontinued 30 mg IM X1 ONE Vital Signs Vital signs: Vital Signs Temperature 98.3 F 05/28/25 18:34 Pulse Rate 88 05/28/25 18:34 Respiratory Rate 18 05/28/25 18:34 Blood Pressure 151/78 H 05/28/25 18:34 Pulse Oximetry (%) 97 05/28/25 18:34 Oxygen Delivery Method Room Air 05/28/25 18:34 Headache MDM Narrative MDM Narrative:: Scribe Attestation: I, Rama Haney, am scribing for and in the presence of Dr. Baron. Provider Notation: Although this document has been carefully reviewed, there may still be some phonetic and other typographical errors. These errors are purely grammatical due to imperfections in the software program and should not be construed in any way to compromise the substance of the patient's medical care during this visit. I interpreted all labs. Protocoled workup was done prior to me seeing the patient. CAT scan of the brain was negative. Patient received Toradol 30 mg IM. She may take Tylenol and/or ibuprofen as needed at home. Follow-up with her doctor. Return to ER as needed or if condition worsens. Patient data External records reviewed:: [facility] previous records (Reviewed prior ED records from 05/21/25. Patient was seen for ENRIKE (acute kidney injury).) Clinical information provided by:: patient Social determinants that could affect healthcare access:: none Patient has the following chronic illnesses:: Hypercholesterolemia, Edema, Hypertension, Ulcer, Hemorrhoids, Arthritis, Anemia, Depression and Anxiety How is presenting disease/condition affected by chronic disease/condition?: exacerbated by Evaluation data The following diagnostics were reviewed and interpreted by me:: lab results, radiology exam(s) and EKG tracing(s) Lab and/or radiology exams considered but not ordered:: No Interpretation Summary: RADIOLOGY Findings: No significant ventricular enlargement. Intra-axial or extra-axial hemorrhage density is not seen. No mass effect or midline shift Basal cisterns are not remarkable. Fourth ventricle is midline. Cranial vault intact. Impression: Negative for acute hemorrhage, mass effect or midline shift Medications / Prescriptions Medications or Prescriptions considered but not ordered:: None Medication administrations:: Medication Administration History Discontinued Medications Ketorolac Tromethamine (Ketorolac Inj 30 Mg/Ml Vial) 30 mg IM X1 ONE Stop: 05/28/25 20:54 See above if any Consultations Consultation(s) initiated? (list below): No Diagnosis Differential diagnosis headache: migraine, tension headache, subarachnoid hemorrhage, headache and postconcussion syndrome Most likely diagnosis given after review of the tests above:: none Admission Indicated Admission indicated?: not indicated Explain why admission is indicated or not indicated:: Patient does not meet admission criteria Admission Request Was there a request for admission?: No Disposition Plan Disposition Plan: Discharge Discharge Attestation Discharge Attestation: The patient and all family members were given an opportunity to ask questions and understood the discharge instructions. Discharge instructions specifically effects, indications for sooner follow up or return to the emergency department, and the expected course of current diagnosis. Patient condition: Stable Discharge Plan Plan Patient Disposition: HOME (Self Care) Prescriptions/Referrals Prescriptions/Med Rec: No Action metoprolol succinate 50 mg Tablet Extended Release 24 Hr 50 mg PO QDAY clopidogrel [Plavix] 75 mg Tablet 75 mg PO QDAY amlodipine 5 mg Tablet 5 mg PO QDAY furosemide 20 mg Tablet 40 mg PO QDAY atorvastatin 20 mg tablet 20 mg PO HS aspirin 81 mg tablet,delayed release (DR/EC) 81 mg PO QDAY Patient Comments: TAKE 1 TABLET BY MOUTH ONCE DAILY pantoprazole 20 mg tablet,delayed release (DR/EC) 20 mg PO QDAY Qty: 30 0RF hydralazine 10 mg Tablet 50 mg PO BID losartan 100 mg Tablet 100 mg PO QDAY Qty: 30 0RF Referrals: Berenice Nugent MD [Primary Care Provider, Nephrology] - In 1 week Problem List Clinical Impression: Cephalalgia Patient/Caregiver Discharge Instructions Education Materials: Self-Care for Headaches Additional Instructions: You may take Tylenol and or ibuprofen as needed for pain. Follow-up with your doctor for further treatment and evaluation as needed. Print Language: Anguillan Stand Alone Forms: Kim Award Info., Patient Portal Info Letter
[2025-05-28] MEDS: KETOROLAC INJ 30 MG/ML VIAL IM (21:19)
[2025-05-28 21:20] VITALS: BP 154/80; PULSE 78; RESP 19; O2SAT 100
[2025-05-28 21:38] VITALS: BP 154/80; PULSE 78; RESP 19; O2SAT 100
--- NOTE | 2025-05-28 21:38 | PC.NURSE ---
at dc pt states a 0/0 pain
== END 2025-05-28 21:39 | disposition home or self-care (01) ==
PROVIDERS: Physician Assistant; Emergency Provider Emergency Medicine; PCP Internal Medicine
DX: R51.9 Headache, unspecified (principal); R42 Dizziness and giddiness; E78.00 Pure hypercholesterolemia, unspecified; F32.A Depression, unspecified; F41.9 Anxiety disorder, unspecified; I10 Essential (primary) hypertension; Z79.82 Long term (current) use of aspirin; Z79.02 Long term (current) use of antithrombotics/antiplatelets; W19.XXXA Unspecified fall, initial encounter
CPT/HCPCS: 36415; 70450; 80053; 81001; 84484; 85025; 85610; 85730; 93005; 96372; 99284; J1885

== ENCOUNTER → 2025-05-30 | Outpatient (CLI) | payer OTHER, MEDICAID, SELFPAY ==
[2025-05-30 08:37] LABS: Basophils # (Auto) 0.1 Thou/mm3 (0.0-0.2); Basophils % (Auto) 2 % (0-2.5); Eosinophils # (Auto) 0.3 Thou/mm3 (0.0-0.5); Eosinophils % (Auto) 5 % (0-10); Hematocrit 30.0 % (36.0-46.0); Hemoglobin 10.0 g/dL (12.0-16.0); Immature Granulocytes Auto 0.01 Thou/mm3 (0.00-0.00); Lymphocytes # (Auto) 1.4 Thou/mm3 (1.0-4.8); Lymphocytes % (Auto) 26 % (10-50); Mean Corpuscular HGB Conc 33.3 g/dl (31.0-37.0); Mean Corpuscular Hemoglobin 31.3 pg (25.0-35.0); Mean Corpuscular Volume 94 fL (80-100); Monocytes # (Auto) 0.6 Thou/mm3 (0.0-0.8); Monocytes % (Auto) 12 % (0-12); Neutrophils # (Auto) 2.9 Thou/mm3 (1.8-7.7); Neutrophils % (Auto) 56 % (37-80); Nucleated Red Blood Cell # 0.00 Thou/mm3 (0.00-0.00); Nucleated Red Blood Cell % 0 /100 WBC (0); Platelet Count 210 Thou/mm3 (140-440); RDW Standard Deviation 55.3 fL (36.4-46.3); Red Blood Count 3.20 Miln/mm3 (4.00-5.20); White Blood Count 5.3 Thou/mm3 (3.6-11.0)
[2025-05-30 09:06] LABS: Alanine Aminotransferase 10 U/L (10-49); Albumin, Serum 4.5 gm/dL (3.4-4.8); Albumin/Globulin Ratio 2.0 (1.2-2.2); Alkaline Phosphatase 74 U/L (46-116); Anion Gap 13 (7-16); Aspartate Amino Transferase 21 U/L (0-34); BUN/Creatinine Ratio 38 Ratio (12-20); Bilirubin,Total 0.5 mg/dL (0.3-1.2); Blood Urea Nitrogen 50 mg/dL (9-23); Calcium 9.5 mg/dL (8.3-10.6); Calcium (Corrected) 9.5 mg/dL (8.5-10.1); Carbon Dioxide 20.3 mMol/L (20.0-31.0); Chloride 109 mMol/L (98-107); Creatinine (Component) 1.3 mg/dL (0.6-1.3); Globulin 2.3 gm/dL (2.3-3.5); Glucose 88 mg/dL (74-106); Osmolality,Calculated 295 (275-295); Potassium 4.4 mMol/L (3.4-5.1); Sodium 142 mMol/L (136-145); Total Protein 6.8 gm/dL (5.7-8.2); eGFR 42 See Note
== END | disposition home or self-care (01) ==
PROVIDERS: PCP Internal Medicine; Referring Provider Internal Medicine; Visit Provider Internal Medicine
DX: I10 Essential (primary) hypertension (principal); I35.2 Nonrheumatic aortic (valve) stenosis with insufficiency
CPT/HCPCS: 36415; 80053; 85025

== ENCOUNTER → 2025-07-09 | Outpatient (CLI) | payer OTHER, MEDICAID, SELFPAY ==
[2025-07-09 08:45] LABS: Albumin, Serum 4.6 gm/dL (3.4-4.8); Anion Gap 9 (7-16); BUN/Creatinine Ratio 28 Ratio (12-20); Blood Urea Nitrogen 28 mg/dL (9-23); Calcium 8.9 mg/dL (8.3-10.6); Calcium (Corrected) 8.9 mg/dL (8.5-10.1); Carbon Dioxide 25.9 mMol/L (20.0-31.0); Chloride 109 mMol/L (98-107); Creatinine (Component) 1.0 mg/dL (0.6-1.3); Glucose 90 mg/dL (74-106); Osmolality,Calculated 292 (275-295); Phosphorous 4.1 mg/dL (2.4-5.1); Potassium 4.4 mMol/L (3.4-5.1); Sodium 144 mMol/L (136-145); eGFR 57 See Note
[2025-07-09 09:05] LABS: Collection Type, Urine Clean Catch; Squamous Epithelial Cell,Urine 0 /hpf (0-5); WBC,Urine 0 /hpf (0-5)
[2025-07-09 09:46] LABS: Bilirubin,Urine Negative (Negative); Blood,Urine Negative (Negative); Clarity,Urine Clear (Clear/Hazy); Color,Urine Lt-Yellow (Lt Yel-Yel); Glucose, Urine Negative (Negative); Ketones,Urine Negative (Negative); Leukocyte Esterase,Urine Negative (Negative); Nitrite,Urine Negative (Negative); PH,Urine 6.5 (5.0-7.0); Protein,Urine Negative (Neg - Trace); RBC,Urine 2 /hpf (0-3); Specific Gravity,Urine 1.015 (1.001-1.035); Urobilinogen,Urine Negative mg/dL (0.0-1.0)
== END | disposition home or self-care (01) ==
LOC: COPL 07:50
PROVIDERS: PCP Internal Medicine; Referring Provider Internal Medicine; Visit Provider Internal Medicine
DX: N17.9 Acute kidney failure, unspecified (principal)
CPT/HCPCS: 36415; 80069; 81001